=== PATIENT | male | born 1945 | race Caucasian/White ===

== ENCOUNTER 2019-04-05 14:07 | Inpatient (IN) | payer MEDICARE ==
[2019-04-05] VITALS (15 sets, daily range): BP systolic 136–188; BP diastolic 47–87
[~2019-04-05] VITALS: Ht 175.3 cm; Wt 69.6 kg
[~2019-04-05 14:07] MED LIST: CLONAZEPAM1 MG PO; METF500T16 PO; SERT50TA8 PO
--- NOTE | 2019-04-05 14:27 | PHYS DOC ---
Past Medical History Past Medical History: Diabetes-Type II Additional Past Medical Histor: MR haily Past Surgical History: No Surgical History Alcohol Use: None Drug Use: None Adult General Chief Complaint Chief Complaint: ABNORMAL LABS HPI HPI 73-year-old male with underlying history of diabetes depression presents to the emergency department with complaints of abnormal labs. Patient apparently went for his normal hemoglobin A1c check, was called today for abnormal labs of a hemoglobin 3. Patient was brought to the ER for further evaluation. Patient is asymptomatic. No nausea, vomiting, abdominal pain, chest pain, shortness of breath. Review of Systems Review of Systems Constitutional: Denies fever or chills [] Respiratory: Denies cough or shortness of breath [] Cardiovascular: No additional information not addressed in HPI [] GI: Denies abdominal pain, nausea, vomiting, bloody stools or diarrhea [] Musculoskeletal: Denies back pain or joint pain [] Integument: Denies rash or skin lesions [] Neurologic: Denies headache, focal weakness or sensory changes [] All other systems were reviewed and found to be within normal limits, except as documented in this note. Allergies Allergies Allergies Coded Allergies Type Severity Reaction Last Updated Verified No Known Drug Allergies 02/26/15 No Physical Exam Physical Exam Constitutional: Well developed, well nourished, no acute distress, non-toxic appearance. [] HENT: Normocephalic, atraumatic, bilateral external ears normal, oropharynx moist, no oral exudates, nose normal. [] Eyes: PERRLA, EOMI, conjunctiva normal, no discharge. [] Cardiovascular:Heart rate regular rhythm, no murmur [] Lungs & Thorax: Bilateral breath sounds clear to auscultation [] Abdomen: Bowel sounds normal, soft, no tenderness, no masses, no pulsatile masses. [] Skin: Warm, dry, no erythema, no rash. [] Back: No tenderness, no CVA tenderness. [] Extremities: No tenderness, no edema. [] Neurologic: Alert and oriented X 3, no focal deficits noted. [] Psychologic: Affect normal, judgement normal, mood normal. [] Current Patient Data Vital Signs Vital Signs Date Time Temp Pulse Resp B/P (MAP) Pulse Ox O2 Delivery O2 Flow Rate FiO2 04/05/19 14:13 98.3 88 25 167/73 (104) 100 Room Air 98.3 Lab Values Laboratory Tests Test 04/05/19 14:40 04/05/19 14:45 Stool Occult Blood Positive (NEG) White Blood Count 6.7 x10^3/uL (4.0-11.0) Red Blood Count 2.75 x10^6/uL (4.30-5.70) L Hemoglobin 3.5 g/dL (13.0-17.5) *L Hematocrit 14.1 % (39.0-53.0) *L Mean Corpuscular Volume 51 fL (79-100) L Mean Corpuscular Hemoglobin 13 pg (25-35) L Mean Corpuscular Hemoglobin Concent 25 g/dL (31-37) L Red Cell Distribution Width 22.4 % (11.5-14.5) H Platelet Count 273 x10^3/uL (140-400) Neutrophils (%) (Auto) % (31-73) Lymphocytes (%) (Auto) % (24-48) Monocytes (%) (Auto) % (0-9) Eosinophils (%) (Auto) % (0-3) Basophils (%) (Auto) % (0-3) Neutrophils # (Auto) x10^3/uL (1.8-7.7) Lymphocytes # (Auto) x10^3/uL (1.0-4.8) Monocytes # (Auto) x10^3/uL (0.0-1.1) Eosinophils # (Auto) x10^3/uL (0.0-0.7) Basophils # (Auto) x10^3/uL (0.0-0.2) Platelet Estimate Pending Laboratory Tests 04/05/19 14:45 EKG EKG EKG reviewed, heart rate 85, left axis deviation, normal sinus rhythm, no evidence of acute ST elevation [place].[] Interpretation Time: Interpretation time 1418 Radiology/Procedures Radiology/Procedures [] Course & Med Decision Making Course & Med Decision Making Pertinent Labs and Imaging studies reviewed. (See chart for details) []73-year-old male with underlying history of diabetes depression presents to the emergency department with complaints of abnormal labs. Patient apparently went for his normal hemoglobin A1c check, was called today for abnormal labs of a hemoglobin 3. Patient was brought to the ER for further evaluation. Patient is asymptomatic. No nausea, vomiting, abdominal pain, chest pain, shortness of breath. Patient presents with complaints of abnormal lab hgb here 3.8, + hemoccult on exam Hemodynamically stable on exam Discussed with caregiver will plan for admit and further GI consultation Jose Alejandro/Fadi in the ER for 2 units of pRBCs Fannie Disclaimer Dragon Disclaimer This electronic medical record was generated, in whole or in part, using a voice recognition dictation system. Departure Departure Impression: Primary Impression: Anemia Additional Impression: Autism Disposition: ADMITTED INPATIENT Admitting Physician: HIMRowena Condition: STABLE Referrals: PAMELA SHAW MD (PCP) Critical Care Time Critical care time was 35 minutes exclusive of procedures. Problem Qualifiers Primary Impression: Anemia Anemia type: unspecified type Qualified Codes: D64.9 - Anemia, unspecified BRADEN DEMPSEY MD Apr 05, 2019 14:27
[2019-04-05 15:10] LABS: FECAL OB PT POSITIVE (NEG)
[2019-04-05 15:41] LABS: MEAN CORPUSCULAR HEMOGLOBIN 13 pg (25-35); MEAN CORPUSCULAR HGB CONC 25 g/dL (31-37); MEAN CORPUSCULAR VOLUME 51 fL (79-100); PLATELET COUNT 273 x10^3/uL (140-400); RED BLOOD COUNT 2.75 x10^6/uL (4.30-5.70); RED CELL DISTRIBUTION WIDTH 22.4 % (11.5-14.5); WHITE BLOOD COUNT 6.7 x10^3/uL (4.0-11.0)
[2019-04-05 15:44] LABS: HEMATOCRIT 14.1 % (39.0-53.0); HEMOGLOBIN 3.5 g/dL (13.0-17.5)
[2019-04-05] MEDS ORDERED: ONDANSETRON PF 4 MG/2 ML VIAL. IV PRN (16:15)
--- NOTE | 2019-04-05 16:15 | PDOC2 ---
GI CONSULT Reason For Consult: Anemia, fecal occult positive HPI: HPI: 73 y/o male w/ MR - no meaningful history from him. Called by ER physician - no family in ER room when I saw him but apparently brought in by niece who reported abnormal labs (Hgb 3) from PCP yesterday. Here, Hgb 3.5, MCV 51, Hemoccult positive. No obvious bleeding reported. Plans for transfusion. For comparison, in 2014 Hgb was 13 w/ MCV 90. No ASA or NSAIDs on med list. PMH: PMH: per chart - autism, MR, DM, hearing loss, large cystic mass right hemisphere, c ystic mass right hemisphere FH: Family History: Other (unable to obtain) ROS: Denies pain. Otherwise difficult to obtain. Vitals: Vitals: Vital Signs Date Time Temp Pulse Resp B/P (MAP) Pulse Ox O2 Delivery O2 Flow Rate FiO2 04/05/19 14:13 98.3 88 25 167/73 (104) 100 Room Air 98.3 Labs: Labs: Laboratory Tests Test 04/05/19 14:40 04/05/19 14:45 Stool Occult Blood Positive (NEG) White Blood Count 6.7 x10^3/uL (4.0-11.0) Red Blood Count 2.75 x10^6/uL (4.30-5.70) Hemoglobin 3.5 g/dL (13.0-17.5) Hematocrit 14.1 % (39.0-53.0) Mean Corpuscular Volume 51 fL (79-100) Mean Corpuscular Hemoglobin 13 pg (25-35) Mean Corpuscular Hemoglobin Concent 25 g/dL (31-37) Red Cell Distribution Width 22.4 % (11.5-14.5) Platelet Count 273 x10^3/uL (140-400) Neutrophils (%) (Auto) % (31-73) Lymphocytes (%) (Auto) % (24-48) Monocytes (%) (Auto) % (0-9) Eosinophils (%) (Auto) % (0-3) Basophils (%) (Auto) % (0-3) Neutrophils # (Auto) x10^3/uL (1.8-7.7) Lymphocytes # (Auto) x10^3/uL (1.0-4.8) Monocytes # (Auto) x10^3/uL (0.0-1.1) Eosinophils # (Auto) x10^3/uL (0.0-0.7) Basophils # (Auto) x10^3/uL (0.0-0.2) Allergies: Coded Allergies: No Known Drug Allergies (Unverified , 02/26/15) PE: GEN: NAD HEENT: Atraumatic, PERRL LUNGS: CTAB HEART: RRR ABD: NABS, S/ND/NT EXTREMITY: No edema SKIN: Npale NEURO/PSYCH: awake and alert - says somebody has 7 girlfriends and his birthday is in [birth year] A/P: A/P: Microcytic anemia, Hemoccult positive MR -- Agree w/ transfusion. Await CMP. Empiric PPI. Discuss EGD w/ family/DPOA if they return - could do Monday. SANTINO MENA Apr 05, 2019 16:15
[2019-04-05 16:22] LABS: % LYMPHS 19 % (24-48); % MONOS 13 % (0-10); % MYELOS 1 % (0-0); % SEGS 67 % (35-66); ANISOCYTOSIS MOD; HYPOCHROMIA MARKED; MICROCYTOSIS MARKED; OVALOCYTES FEW; PLT ESTIMATE ADEQUATE (ADEQUATE); POIKILOCYTOSIS SLIGHT; SCHISTOCYTES FEW
[2019-04-05 16:30] LABS: CALCIUM 7.9 mg/dL (8.5-10.1); GFR 73.5; POTASSIUM 3.9 mmol/L (3.5-5.1)
[2019-04-05 16:36] LABS: ALBUMIN 3.4 g/dL (3.4-5.0); TOTAL BILIRUBIN 0.4 mg/dL (0.2-1.0); TOTAL PROTEIN 6.8 g/dL (6.4-8.2)
[2019-04-05] MEDS ORDERED: ACETAMINOPHEN 500 MG TABLET PO PRN (16:45)
[2019-04-05] MEDS ORDERED: TEMAZEPAM 7.5 MG CAPSULE PO PRN (16:45)
[2019-04-05] MEDS ORDERED: ACETAMINOPHEN/CODEINE 300/30MG TABLET. PO PRN (16:45)
[2019-04-05] MEDS ORDERED: ONDANSETRON PF 4 MG/2 ML VIAL. IVP PRN (16:45)
--- NOTE | 2019-04-05 16:51 | PDOC1 ---
History and Physical Date of Admission Date of Admission DATE: 04/05/19 TIME: 16:44 Identification/Chief Complaint Chief Complaint Hgb 3 at PCP office Source Source: Caregiver, Chart review, Patient History of Present Illness History of Present Illness 73 white male who looks very pale but not in distress, sent in by PCP kristin of hgb 3, NO meaningful hx can be gathered from patient, no family or niece at bedside but apparently was brought by niece today bec PCP called her for hgb 3, Pt cant tell me anything, looks comfortable, HR 80, sinus, BP 150 systolic and FOBT pOSITIVE. MICROCYTIC INDICES (MCV 51) He only takes 3 meds at home based on records, klonipin, sertraline and metformin which all can be safely continued Past Medical History Psych: Depression Endocrine: Diabetes Past Surgical History Past Surgical History: No pertinent history Family History Family History: Family History Unknown Social History Smoke: No ALCOHOL: none Drugs: None Current Problem List Problem List Problems Medical Problems: (1) Abnormal laboratory test Status: Acute (2) Anemia Status: Acute (3) Autism Status: Acute Current Medications Current Medications Current Medications Ondansetron HCl (Zofran) 4 mg PRN Q8HRS PRN IV NAUSEA/VOMITING; Start 04/05/19 at 16:15; Stop 04/06/19 at 16:14 Pantoprazole Sodium (PROTONIX VIAL for IV PUSH) 40 mg DAILY IVP ; Start 04/05/19 at 16:30 Polyethylene Glycol (miraLAX Powder BULK BOTTLE) 238 gm 1X ONCE PO ; Start 04/07/19 at 12:00; Stop 04/07/19 at 12:01 Magnesium Citrate (Citroma) 296 ml 1X ONCE PO ; Start 04/07/19 at 10:00; Stop 04/07/19 at 10:01 Bisacodyl (Dulcolax Tab) 10 mg 1X ONCE PO ; Start 04/07/19 at 10:00; Stop 04/07/19 at 10:01 Bisacodyl (Dulcolax Tab) 10 mg 1X ONCE PO ; Start 04/07/19 at 15:00; Stop 04/07/19 at 15:01 Active Scripts Active Reported Metformin Hcl 500 Mg Tablet 250 Mg PO BID Sertraline Hcl 50 Mg Tablet 50 Mg PO DAILY Clonazepam 1 Mg Tablet 1 Mg PO BID PRN Allergies Allergies: Coded Allergies: No Known Drug Allergies (Unverified , 02/26/15) ROS Review of System limited, dementia, not reliable Physical Exam General: No acute distress HEENT: Atraumatic, PERRLA, EOMI, Other (pale palpebral conjunctivae) Lungs: Clear to auscultation, Normal air movement Heart: S1S2, RRR, no thrills, no rubs, no gallops, no murmurs Abdomen: Normal bowel sounds, Soft, No tenderness, No hepatosplenomegaly, No masses Male Genitals Exam: normal genitalia, normal prostate Rectal Exam: not examined PELVIC: Nml ext genitalia Extremities: No clubbing, No cyanosis, No edema, Normal pulses, No tend erness/swelling, Other (pallor) Skin: No rashes, No breakdown, No significant lesion Neuro: Normal gait, Normal speech, Strength at 5/5 X4 ext, Normal tone, Sensation intact, Cranial nerves 3-12 NL, Reflexes 2+ Psych/Mental Status: Mental status NL, Mood NL Vitals Vitals Vital Signs Date Time Temp Pulse Resp B/P (MAP) Pulse Ox O2 Delivery O2 Flow Rate FiO2 04/05/19 15:54 89 20 151/65 (93) 100 Room Air 04/05/19 14:13 98.3 98.3 Labs Labs Laboratory Tests Test 04/05/19 14:40 04/05/19 14:45 Stool Occult Blood Positive (NEG) White Blood Count 6.7 x10^3/uL (4.0-11.0) Red Blood Count 2.75 x10^6/uL (4.30-5.70) Hemoglobin 3.5 g/dL (13.0-17.5) Hematocrit 14.1 % (39.0-53.0) Mean Corpuscular Volume 51 fL (79-100) Mean Corpuscular Hemoglobin 13 pg (25-35) Mean Corpuscular Hemoglobin Concent 25 g/dL (31-37) Red Cell Distribution Width 22.4 % (11.5-14.5) Platelet Count 273 x10^3/uL (140-400) Neutrophils (%) (Auto) % (31-73) Lymphocytes (%) (Auto) % (24-48) Monocytes (%) (Auto) % (0-9) Eosinophils (%) (Auto) % (0-3) Basophils (%) (Auto) % (0-3) Neutrophils # (Auto) x10^3/uL (1.8-7.7) Lymphocytes # (Auto) x10^3/uL (1.0-4.8) Monocytes # (Auto) x10^3/uL (0.0-1.1) Eosinophils # (Auto) x10^3/uL (0.0-0.7) Basophils # (Auto) x10^3/uL (0.0-0.2) Segmented Neutrophils % 67 % (35-66) Lymphocytes % 19 % (24-48) Monocytes % 13 % (0-10) Myelocytes % 1 % (0-0) Platelet Estimate Adequate (ADEQUATE) Hypochromasia Marked Poikilocytosis Slight Anisocytosis Mod Microcytosis Marked Ovalocytes Few Schistocytes Few Sodium Level 138 mmol/L (136-145) Potassium Level 3.9 mmol/L (3.5-5.1) Chloride Level 103 mmol/L (98-107) Carbon Dioxide Level 22 mmol/L (21-32) Anion Gap 13 (6-14) Blood Urea Nitrogen 16 mg/dL (8-26) Creatinine 1.0 mg/dL (0.7-1.3) Estimated GFR (Cockcroft-Gault) 73.5 BUN/Creatinine Ratio 16 (6-20) Glucose Level 299 mg/dL (70-99) Calcium Level 7.9 mg/dL (8.5-10.1) Iron Level 8 ug/dL (65-175) Total Iron Binding Capacity 308 ug/dL (250-450) Iron Saturation 3 % (15-34) Total Bilirubin 0.4 mg/dL (0.2-1.0) Aspartate Amino Transf (AST/SGOT) 17 U/L (15-37) Alanine Aminotransferase (ALT/SGPT) 10 U/L (16-63) Alkaline Phosphatase 85 U/L (46-116) Total Protein 6.8 g/dL (6.4-8.2) Albumin 3.4 g/dL (3.4-5.0) Albumin/Globulin Ratio 1.0 (1.0-1.7) Laboratory Tests Test 04/05/19 14:40 04/05/19 14:45 Stool Occult Blood Positive (NEG) White Blood Count 6.7 x10^3/uL (4.0-11.0) Red Blood Count 2.75 x10^6/uL (4.30-5.70) Hemoglobin 3.5 g/dL (13.0-17.5) Hematocrit 14.1 % (39.0-53.0) Mean Corpuscular Volume 51 fL (79-100) Mean Corpuscular Hemoglobin 13 pg (25-35) Mean Corpuscular Hemoglobin Concent 25 g/dL (31-37) Red Cell Distribution Width 22.4 % (11.5-14.5) Platelet Count 273 x10^3/uL (140-400) Neutrophils (%) (Auto) % (31-73) Lymphocytes (%) (Auto) % (24-48) Monocytes (%) (Auto) % (0-9) Eosinophils (%) (Auto) % (0-3) Basophils (%) (Auto) % (0-3) Neutrophils # (Auto) x10^3/uL (1.8-7.7) Lymphocytes # (Auto) x10^3/uL (1.0-4.8) Monocytes # (Auto) x10^3/uL (0.0-1.1) Eosinophils # (Auto) x10^3/uL (0.0-0.7) Basophils # (Auto) x10^3/uL (0.0-0.2) Segmented Neutrophils % 67 % (35-66) Lymphocytes % 19 % (24-48) Monocytes % 13 % (0-10) Myelocytes % 1 % (0-0) Platelet Estimate Adequate (ADEQUATE) Hypochromasia Marked Poikilocytosis Slight Anisocytosis Mod Microcytosis Marked Ovalocytes Few Schistocytes Few Sodium Level 138 mmol/L (136-145) Potassium Level 3.9 mmol/L (3.5-5.1) Chloride Level 103 mmol/L (98-107) Carbon Dioxide Level 22 mmol/L (21-32) Anion Gap 13 (6-14) Blood Urea Nitrogen 16 mg/dL (8-26) Creatinine 1.0 mg/dL (0.7-1.3) Estimated GFR (Cockcroft-Gault) 73.5 BUN/Creatinine Ratio 16 (6-20) Glucose Level 299 mg/dL (70-99) Calcium Level 7.9 mg/dL (8.5-10.1) Iron Level 8 ug/dL (65-175) Total Iron Binding Capacity 308 ug/dL (250-450) Iron Saturation 3 % (15-34) Total Bilirubin 0.4 mg/dL (0.2-1.0) Aspartate Amino Transf (AST/SGOT) 17 U/L (15-37) Alanine Aminotransferase (ALT/SGPT) 10 U/L (16-63) Alkaline Phosphatase 85 U/L (46-116) Total Protein 6.8 g/dL (6.4-8.2) Albumin 3.4 g/dL (3.4-5.0) Albumin/Globulin Ratio 1.0 (1.0-1.7) VTE Prophylaxis Ordered VTE Prophylaxis Devices: Contraindicated VTE Pharmacological Prophylaxi: Contraindicated Assessment/Plan Assessment/Plan SIGNIF MICROCYTIC ANEMIA, remarkable asymmptomatic Acute precipitous drop hgb - hgb 3 FOBT positive Depression NOS on meds DM on OHA - creat ok, so ok to cont metformin NOrmal BMI FULL CODE PLAN; Transfuse, ICU bed tmr GI consult Lqiud diet PPI IV per GI Ok to cont 3 home meds ANy active bleeding tonight will warrant bleeding scan to get etiology of anemia seen at ER Dw GI PROMISE Bose MD Apr 05, 2019 16:51
[2019-04-05] MEDS ORDERED: DEXTROSE 50% 25 GM / 50ML DISP.SYRIN. IV PRN (17:00)
[2019-04-05] MEDS: INSULIN LISPRO 300 UNITS/3 ML VIAL. SQ SCH (17:00)
[2019-04-05] MEDS ORDERED: clonazePAM 0.5 MG TABLET PO PRN (17:00)
[2019-04-05] MEDS ORDERED: metFORMIN 500 MG TABLET PO SCH (17:00)
[2019-04-05] MEDS: PANTOPRAZOLE IV PUSH 40 MG VIAL. IVP SCH (21:04)
[2019-04-05] MEDS: IV NORMAL SALINE 1000ML BAG 1,000 ML IV SCH (21:04)
[2019-04-05] MEDS ORDERED: RISP2TAB3 PO (22:27)
[2019-04-05] MEDS ORDERED: GLIM1TAB3 PO (22:27)
[2019-04-05] MEDS ORDERED: TRAZ-118 PO (22:27)
[2019-04-05 22:33] LABS: HEMATOCRIT 21.9 % (39.0-53.0)
[2019-04-05 22:35] LABS: HEMOGLOBIN 5.9 g/dL (13.0-17.5)
[2019-04-06] VITALS (22 sets, daily range): BP systolic 105–165; BP diastolic 38–83
[2019-04-06] MEDS: IV NORMAL SALINE 1000ML BAG 1,000 ML IV SCH ×3 (03:00→20:14)
[2019-04-06 07:07] LABS: ALBUMIN 3.4 g/dL (3.4-5.0); CALCIUM 8.3 mg/dL (8.5-10.1); CREATININE 0.7 mg/dL (0.7-1.3); GFR 110.9; POTASSIUM 3.7 mmol/L (3.5-5.1); TOTAL BILIRUBIN 1.5 mg/dL (0.2-1.0); TOTAL PROTEIN 6.8 g/dL (6.4-8.2)
[2019-04-06 07:11] LABS: BASO % 1 % (0-3); EOS # 0.1 x10^3/uL (0.0-0.7); EOS % 2 % (0-3); HEMATOCRIT 24.4 % (39.0-53.0); HEMOGLOBIN 7.2 g/dL (13.0-17.5); LYMPH # 2.6 x10^3/uL (1.0-4.8); LYMPH % 37 % (24-48); MEAN CORPUSCULAR HEMOGLOBIN 18 pg (25-35); MEAN CORPUSCULAR HGB CONC 29 g/dL (31-37); MEAN CORPUSCULAR VOLUME 62 fL (79-100); MONO # 0.5 x10^3/uL (0.0-1.1); MONO % 7 % (0-9); NEUT # 3.8 x10^3/uL (1.8-7.7); NEUT % 53 % (31-73); PLATELET COUNT 232 x10^3/uL (140-400); RED BLOOD COUNT 3.93 x10^6/uL (4.30-5.70); RED CELL DISTRIBUTION WIDTH 34.5 % (11.5-14.5)
[2019-04-06] MEDS: INSULIN LISPRO 300 UNITS/3 ML VIAL. SQ SCH ×3 (08:00→17:00)
--- NOTE | 2019-04-06 08:59 | PDOC ---
PROGRESS NOTES History of Present Illness History of Present Illness VTE Prophylaxis Ordered VTE Prophylaxis Devices: Contraindicated VTE Pharmacological Prophylaxi: Contraindicated Assessment/Plan Assessment/Plan MICROCYTIC ANEMIA, MARKED Acute precipitous drop hgb - hgb 3 NOW 7.2 FOBT positive autism prev CT HEAD large cystic structure associated with the posterior aspect of the right lateral ventricle extending into the temporal horn. // chronic appearance. There is some associated mass effect phoebe cystic structure, as opposed to an encephalomalacic area, is felt most likely. (A thin rim of cortex is suggested surrounding this cystic mass). Depression NOS on meds DM on OHA - NOrmal BMI FULL CODE PLAN; Transfuse, ICU bed HH in am GI FOLLOWING Lqiud diet PPI IV per GI colonoscopy and EGD ///Monday; 37 MIN CC TIME Vitals Vitals Vital Signs Date Time Temp Pulse Resp B/P (MAP) Pulse Ox O2 Delivery O2 Flow Rate FiO2 04/06/19 08:00 Room Air 04/06/19 08:00 66 18 165/83 (110) 100 04/06/19 04:00 98.3 98.3 Physical Exam General: Alert, Cooperative, No acute distress Heart: Regular rate Lungs: Clear Abdomen: Normal bowel sounds, Soft, No tenderness, No hepatosplenomegaly, No masses Extremities: No clubbing, No cyanosis, No edema, Normal pulses, No tenderness/s welling, Other (pallor) Skin: No rashes, No breakdown, No significant lesion Labs LABS BRAIN WO/W CONTRAST Indication: Altered mental status. The intracranial cyst. COMPARISON: TECHNIQUE: Axial diffusion weighted imaging was obtained. Additional sagittal T1, axial T1, axial FLAIR, and axial T2 weighted imaging of the brain was also performed. Postcontrast T1 weighted imaging was also performed after intravenous administration of gadolinium based contrast. FINDINGS The lateral ventricles are enlarged. The right lateral ventricle is much larger than the left. Small septations are noted in the region of the posterior aspect of the frontal horns bilaterally. There is thinning of the right parietal, occipital, and temporal cortex. This is seen to a lesser degree on the left. There is no acute intracranial hemorrhage. No acute or recent infarct. The 4th ventricle is normal in sinus. There is no evidence for a mass at the level of the cerebral aqueduct or midbrain. Basal cisterns are patent. No abnormal intracranial enhancement. Visualized globes and orbits are within normal limits. Visualized paranasal sinuses and mastoid air cells are clear. IMPRESSION There is significant dilatation of the lateral ventricles much greater on the right. This is either due to ex vacuo dilatation from a remote insult likely to the posterior right cerebral hemisphere, or this could also be due to presence of an intraventricular cyst with chronic thinning of the cortical mantle. The results is significant thinning and atrophy of the right temporal, parietal, and occipital lobes. This is seen to a lesser degree on the left. There is otherwise no acute intracranial abnormality identified. Electronically signed by: Vern Troncoso (Jul 09, 2015 17:10:20) DICTATED and SIGNED BY: VERN TRONCOSO MD DATE: 07/09/15 [id number] CC: PAMELA SHAW MD ~ Laboratory Tests Test 04/05/19 14:40 04/05/19 14:45 04/05/19 17:46 04/05/19 21:02 Stool Occult Blood Positive (NEG) White Blood Count 6.7 x10^3/uL (4.0-11.0) Red Blood Count 2.75 x10^6/uL (4.30-5.70) Hemoglobin 3.5 g/dL (13.0-17.5) Hematocrit 14.1 % (39.0-53.0) Mean Corpuscular Volume 51 fL (79-100) Mean Corpuscular Hemoglobin 13 pg (25-35) Mean Corpuscular Hemoglobin Concent 25 g/dL (31-37) Red Cell Distribution Width 22.4 % (11.5-14.5) Platelet Count 273 x10^3/uL (140-400) Neutrophils (%) (Auto) % (31-73) Lymphocytes (%) (Auto) % (24-48) Monocytes (%) (Auto) % (0-9) Eosinophils (%) (Auto) % (0-3) Basophils (%) (Auto) % (0-3) Neutrophils # (Auto) x10^3/uL (1.8-7.7) Lymphocytes # (Auto) x10^3/uL (1.0-4.8) Monocytes # (Auto) x10^3/uL (0.0-1.1) Eosinophils # (Auto) x10^3/uL (0.0-0.7) Basophils # (Auto) x10^3/uL (0.0-0.2) Segmented Neutrophils % 67 % (35-66) Lymphocytes % 19 % (24-48) Monocytes % 13 % (0-10) Myelocytes % 1 % (0-0) Platelet Estimate Adequate (ADEQUATE) Hypochromasia Marked Poikilocytosis Slight Anisocytosis Mod Microcytosis Marked Ovalocytes Few Schistocytes Few Sodium Level 138 mmol/L (136-145) Potassium Level 3.9 mmol/L (3.5-5.1) Chloride Level 103 mmol/L (98-107) Carbon Dioxide Level 22 mmol/L (21-32) Anion Gap 13 (6-14) Blood Urea Nitrogen 16 mg/dL (8-26) Creatinine 1.0 mg/dL (0.7-1.3) Estimated GFR (Cockcroft-Gault) 73.5 BUN/Creatinine Ratio 16 (6-20) Glucose Level 299 mg/dL (70-99) Calcium Level 7.9 mg/dL (8.5-10.1) Iron Level 8 ug/dL (65-175) Total Iron Binding Capacity 308 ug/dL (250-450) Iron Saturation 3 % (15-34) Total Bilirubin 0.4 mg/dL (0.2-1.0) Aspartate Amino Transf (AST/SGOT) 17 U/L (15-37) Alanine Aminotransferase (ALT/SGPT) 10 U/L (16-63) Alkaline Phosphatase 85 U/L (46-116) Total Protein 6.8 g/dL (6.4-8.2) Albumin 3.4 g/dL (3.4-5.0) Albumin/Globulin Ratio 1.0 (1.0-1.7) Glucose (Fingerstick) 162 mg/dL (70-99) 126 mg/dL (70-99) Test 04/05/19 22:20 04/06/19 05:50 Hemoglobin 5.9 g/dL (13.0-17.5) 7.2 g/dL (13.0-17.5) Hematocrit 21.9 % (39.0-53.0) 24.4 % (39.0-53.0) Mean Corpuscular Hemoglobin Concent 27 g/dL (31-37) 29 g/dL (31-37) White Blood Count 7.0 x10^3/uL (4.0-11.0) Red Blood Count 3.93 x10^6/uL (4.30-5.70) Mean Corpuscular Volume 62 fL (79-100) Mean Corpuscular Hemoglobin 18 pg (25-35) Red Cell Distribution Width 34.5 % (11.5-14.5) Platelet Count 232 x10^3/uL (140-400) Neutrophils (%) (Auto) 53 % (31-73) Lymphocytes (%) (Auto) 37 % (24-48) Monocytes (%) (Auto) 7 % (0-9) Eosinophils (%) (Auto) 2 % (0-3) Basophils (%) (Auto) 1 % (0-3) Neutrophils # (Auto) 3.8 x10^3/uL (1.8-7.7) Lymphocytes # (Auto) 2.6 x10^3/uL (1.0-4.8) Monocytes # (Auto) 0.5 x10^3/uL (0.0-1.1) Eosinophils # (Auto) 0.1 x10^3/uL (0.0-0.7) Basophils # (Auto) 0.0 x10^3/uL (0.0-0.2) Sodium Level 142 mmol/L (136-145) Potassium Level 3.7 mmol/L (3.5-5.1) Chloride Level 108 mmol/L (98-107) Carbon Dioxide Level 25 mmol/L (21-32) Anion Gap 9 (6-14) Blood Urea Nitrogen 10 mg/dL (8-26) Creatinine 0.7 mg/dL (0.7-1.3) Estimated GFR (Cockcroft-Gault) 110.9 BUN/Creatinine Ratio 14 (6-20) Glucose Level 118 mg/dL (70-99) Calcium Level 8.3 mg/dL (8.5-10.1) Total Bilirubin 1.5 mg/dL (0.2-1.0) Aspartate Amino Transf (AST/SGOT) 8 U/L (15-37) Alanine Aminotransferase (ALT/SGPT) 10 U/L (16-63) Alkaline Phosphatase 79 U/L (46-116) Total Protein 6.8 g/dL (6.4-8.2) Albumin 3.4 g/dL (3.4-5.0) Albumin/Globulin Ratio 1.0 (1.0-1.7) Assessment and Plan Assessmemt and Plan Problems Medical Problems: (1) Abnormal laboratory test Status: Acute (2) Anemia Status: Acute (3) Autism Status: Acute Comment Review of Relevant I have reviewed the following items mari (where applicable) has been applied. Labs Laboratory Tests Test 04/05/19 14:40 04/05/19 14:45 04/05/19 17:46 04/05/19 21:02 Stool Occult Blood Positive (NEG) White Blood Count 6.7 x10^3/uL (4.0-11.0) Red Blood Count 2.75 x10^6/uL (4.30-5.70) Hemoglobin 3.5 g/dL (13.0-17.5) Hematocrit 14.1 % (39.0-53.0) Mean Corpuscular Volume 51 fL (79-100) Mean Corpuscular Hemoglobin 13 pg (25-35) Mean Corpuscular Hemoglobin Concent 25 g/dL (31-37) Red Cell Distribution Width 22.4 % (11.5-14.5) Platelet Count 273 x10^3/uL (140-400) Neutrophils (%) (Auto) % (31-73) Lymphocytes (%) (Auto) % (24-48) Monocytes (%) (Auto) % (0-9) Eosinophils (%) (Auto) % (0-3) Basophils (%) (Auto) % (0-3) Neutrophils # (Auto) x10^3/uL (1.8-7.7) Lymphocytes # (Auto) x10^3/uL (1.0-4.8) Monocytes # (Auto) x10^3/uL (0.0-1.1) Eosinophils # (Auto) x10^3/uL (0.0-0.7) Basophils # (Auto) x10^3/uL (0.0-0.2) Segmented Neutrophils % 67 % (35-66) Lymphocytes % 19 % (24-48) Monocytes % 13 % (0-10) Myelocytes % 1 % (0-0) Platelet Estimate Adequate (ADEQUATE) Hypochromasia Marked Poikilocytosis Slight Anisocytosis Mod Microcytosis Marked Ovalocytes Few Schistocytes Few Sodium Level 138 mmol/L (136-145) Potassium Level 3.9 mmol/L (3.5-5.1) Chloride Level 103 mmol/L (98-107) Carbon Dioxide Level 22 mmol/L (21-32) Anion Gap 13 (6-14) Blood Urea Nitrogen 16 mg/dL (8-26) Creatinine 1.0 mg/dL (0.7-1.3) Estimated GFR (Cockcroft-Gault) 73.5 BUN/Creatinine Ratio 16 (6-20) Glucose Level 299 mg/dL (70-99) Calcium Level 7.9 mg/dL (8.5-10.1) Iron Level 8 ug/dL (65-175) Total Iron Binding Capacity 308 ug/dL (250-450) Iron Saturation 3 % (15-34) Total Bilirubin 0.4 mg/dL (0.2-1.0) Aspartate Amino Transf (AST/SGOT) 17 U/L (15-37) Alanine Aminotransferase (ALT/SGPT) 10 U/L (16-63) Alkaline Phosphatase 85 U/L (46-116) Total Protein 6.8 g/dL (6.4-8.2) Albumin 3.4 g/dL (3.4-5.0) Albumin/Globulin Ratio 1.0 (1.0-1.7) Glucose (Fingerstick) 162 mg/dL (70-99) 126 mg/dL (70-99) Test 04/05/19 22:20 04/06/19 05:50 Hemoglobin 5.9 g/dL (13.0-17.5) 7.2 g/dL (13.0-17.5) Hematocrit 21.9 % (39.0-53.0) 24.4 % (39.0-53.0) Mean Corpuscular Hemoglobin Concent 27 g/dL (31-37) 29 g/dL (31-37) White Blood Count 7.0 x10^3/uL (4.0-11.0) Red Blood Count 3.93 x10^6/uL (4.30-5.70) Mean Corpuscular Volume 62 fL (79-100) Mean Corpuscular Hemoglobin 18 pg (25-35) Red Cell Distribution Width 34.5 % (11.5-14.5) Platelet Count 232 x10^3/uL (140-400) Neutrophils (%) (Auto) 53 % (31-73) Lymphocytes (%) (Auto) 37 % (24-48) Monocytes (%) (Auto) 7 % (0-9) Eosinophils (%) (Auto) 2 % (0-3) Basophils (%) (Auto) 1 % (0-3) Neutrophils # (Auto) 3.8 x10^3/uL (1.8-7.7) Lymphocytes # (Auto) 2.6 x10^3/uL (1.0-4.8) Monocytes # (Auto) 0.5 x10^3/uL (0.0-1.1) Eosinophils # (Auto) 0.1 x10^3/uL (0.0-0.7) Basophils # (Auto) 0.0 x10^3/uL (0.0-0.2) Sodium Level 142 mmol/L (136-145) Potassium Level 3.7 mmol/L (3.5-5.1) Chloride Level 108 mmol/L (98-107) Carbon Dioxide Level 25 mmol/L (21-32) Anion Gap 9 (6-14) Blood Urea Nitrogen 10 mg/dL (8-26) Creatinine 0.7 mg/dL (0.7-1.3) Estimated GFR (Cockcroft-Gault) 110.9 BUN/Creatinine Ratio 14 (6-20) Glucose Level 118 mg/dL (70-99) Calcium Level 8.3 mg/dL (8.5-10.1) Total Bilirubin 1.5 mg/dL (0.2-1.0) Aspartate Amino Transf (AST/SGOT) 8 U/L (15-37) Alanine Aminotransferase (ALT/SGPT) 10 U/L (16-63) Alkaline Phosphatase 79 U/L (46-116) Total Protein 6.8 g/dL (6.4-8.2) Albumin 3.4 g/dL (3.4-5.0) Albumin/Globulin Ratio 1.0 (1.0-1.7) Laboratory Tests Test 04/05/19 14:40 04/05/19 14:45 04/05/19 17:46 04/05/19 21:02 Stool Occult Blood Positive (NEG) White Blood Count 6.7 x10^3/uL (4.0-11.0) Red Blood Count 2.75 x10^6/uL (4.30-5.70) Hemoglobin 3.5 g/dL (13.0-17.5) Hematocrit 14.1 % (39.0-53.0) Mean Corpuscular Volume 51 fL (79-100) Mean Corpuscular Hemoglobin 13 pg (25-35) Mean Corpuscular Hemoglobin Concent 25 g/dL (31-37) Red Cell Distribution Width 22.4 % (11.5-14.5) Platelet Count 273 x10^3/uL (140-400) Neutrophils (%) (Auto) % (31-73) Lymphocytes (%) (Auto) % (24-48) Monocytes (%) (Auto) % (0-9) Eosinophils (%) (Auto) % (0-3) Basophils (%) (Auto) % (0-3) Neutrophils # (Auto) x10^3/uL (1.8-7.7) Lymphocytes # (Auto) x10^3/uL (1.0-4.8) Monocytes # (Auto) x10^3/uL (0.0-1.1) Eosinophils # (Auto) x10^3/uL (0.0-0.7) Basophils # (Auto) x10^3/uL (0.0-0.2) Segmented Neutrophils % 67 % (35-66) Lymphocytes % 19 % (24-48) Monocytes % 13 % (0-10) Myelocytes % 1 % (0-0) Platelet Estimate Adequate (ADEQUATE) Hypochromasia Marked Poikilocytosis Slight Anisocytosis Mod Microcytosis Marked Ovalocytes Few Schistocytes Few Sodium Level 138 mmol/L (136-145) Potassium Level 3.9 mmol/L (3.5-5.1) Chloride Level 103 mmol/L (98-107) Carbon Dioxide Level 22 mmol/L (21-32) Anion Gap 13 (6-14) Blood Urea Nitrogen 16 mg/dL (8-26) Creatinine 1.0 mg/dL (0.7-1.3) Estimated GFR (Cockcroft-Gault) 73.5 BUN/Creatinine Ratio 16 (6-20) Glucose Level 299 mg/dL (70-99) Calcium Level 7.9 mg/dL (8.5-10.1) Iron Level 8 ug/dL (65-175) Total Iron Binding Capacity 308 ug/dL (250-450) Iron Saturation 3 % (15-34) Total Bilirubin 0.4 mg/dL (0.2-1.0) Aspartate Amino Transf (AST/SGOT) 17 U/L (15-37) Alanine Aminotransferase (ALT/SGPT) 10 U/L (16-63) Alkaline Phosphatase 85 U/L (46-116) Total Protein 6.8 g/dL (6.4-8.2) Albumin 3.4 g/dL (3.4-5.0) Albumin/Globulin Ratio 1.0 (1.0-1.7) Glucose (Fingerstick) 162 mg/dL (70-99) 126 mg/dL (70-99) Test 04/05/19 22:20 04/06/19 05:50 Hemoglobin 5.9 g/dL (13.0-17.5) 7.2 g/dL (13.0-17.5) Hematocrit 21.9 % (39.0-53.0) 24.4 % (39.0-53.0) Mean Corpuscular Hemoglobin Concent 27 g/dL (31-37) 29 g/dL (31-37) White Blood Count 7.0 x10^3/uL (4.0-11.0) Red Blood Count 3.93 x10^6/uL (4.30-5.70) Mean Corpuscular Volume 62 fL (79-100) Mean Corpuscular Hemoglobin 18 pg (25-35) Red Cell Distribution Width 34.5 % (11.5-14.5) Platelet Count 232 x10^3/uL (140-400) Neutrophils (%) (Auto) 53 % (31-73) Lymphocytes (%) (Auto) 37 % (24-48) Monocytes (%) (Auto) 7 % (0-9) Eosinophils (%) (Auto) 2 % (0-3) Basophils (%) (Auto) 1 % (0-3) Neutrophils # (Auto) 3.8 x10^3/uL (1.8-7.7) Lymphocytes # (Auto) 2.6 x10^3/uL (1.0-4.8) Monocytes # (Auto) 0.5 x10^3/uL (0.0-1.1) Eosinophils # (Auto) 0.1 x10^3/uL (0.0-0.7) Basophils # (Auto) 0.0 x10^3/uL (0.0-0.2) Sodium Level 142 mmol/L (136-145) Potassium Level 3.7 mmol/L (3.5-5.1) Chloride Level 108 mmol/L (98-107) Carbon Dioxide Level 25 mmol/L (21-32) Anion Gap 9 (6-14) Blood Urea Nitrogen 10 mg/dL (8-26) Creatinine 0.7 mg/dL (0.7-1.3) Estimated GFR (Cockcroft-Gault) 110.9 BUN/Creatinine Ratio 14 (6-20) Glucose Level 118 mg/dL (70-99) Calcium Level 8.3 mg/dL (8.5-10.1) Total Bilirubin 1.5 mg/dL (0.2-1.0) Aspartate Amino Transf (AST/SGOT) 8 U/L (15-37) Alanine Aminotransferase (ALT/SGPT) 10 U/L (16-63) Alkaline Phosphatase 79 U/L (46-116) Total Protein 6.8 g/dL (6.4-8.2) Albumin 3.4 g/dL (3.4-5.0) Albumin/Globulin Ratio 1.0 (1.0-1.7) Medications Current Medications Ondansetron HCl (Zofran) 4 mg PRN Q8HRS PRN IV NAUSEA/VOMITING; Start 04/05/19 at 16:15; Stop 04/06/19 at 16:14 Pantoprazole Sodium (PROTONIX VIAL for IV PUSH) 40 mg DAILY IVP Last administered on 04/05/19at 21:04; Start 04/05/19 at 16:30 Polyethylene Glycol (miraLAX Powder BULK BOTTLE) 238 gm 1X ONCE PO ; Start 04/07/19 at 12:00; Stop 04/07/19 at 12:01 Magnesium Citrate (Citroma) 296 ml 1X ONCE PO ; Start 04/07/19 at 10:00; Stop 04/07/19 at 10:01 Bisacodyl (Dulcolax Tab) 10 mg 1X ONCE PO ; Start 04/07/19 at 10:00; Stop 04/07/19 at 10:01 Bisacodyl (Dulcolax Tab) 10 mg 1X ONCE PO ; Start 04/07/19 at 15:00; Stop 04/07/19 at 15:01 Acetaminophen (Tylenol) 500 mg PRN Q6HRS PRN PO MILD PAIN / TEMP; Start 04/05/19 at 16:45 Acetaminophen/ Codeine Phosphate (Tylenol #3) 1 tab PRN Q6HRS PRN PO PAIN MODERATE TO SEVERE PAIN; Start 04/05/19 at 16:45 Temazepam (Restoril) 7.5 mg PRN QHS PRN PO INSOMNIA; Start 04/05/19 at 16:45 Ondansetron HCl (Zofran) 4 mg PRN Q6HRS PRN IVP NAUSEA/VOMITING; Start 1 at 16:45 Metformin HCl (Glucophage) 250 mg BIDWMEALS PO ; Start 04/05/19 at 17:00 Sertraline HCl (Zoloft) 50 mg DAILY PO ; Start 04/06/19 at 09:00 Clonazepam (KlonoPIN) 1 mg PRN BID PRN PO ANXIETY / AGITATION; Start 04/05/19 at 17:00 Insulin Human Lispro (HumaLOG) 0-7 UNITS TIDWMEALS SQ ; Start 04/05/19 at 17:00 Dextrose (Dextrose 50%-Water Syringe) 12.5 gm PRN Q15MIN PRN IV SEE COMMENTS; Start 04/05/19 at 17:00 Sodium Chloride 1,000 ml @ 100 mls/hr Q10H IV Last administered on 04/05/19at 21:04; Start 04/05/19 at 17:00 Active Scripts Active Reported Risperidone 2 Mg Tablet 2 Mg PO DAILY Trazodone Hcl 50 Mg Tablet 25 Mg PO PRN PRN Glimepiride 1 Mg Tablet 1 Tab PO BIDAC Metformin Hcl 500 Mg Tablet 250 Mg PO BID Sertraline Hcl 50 Mg Tablet 50 Mg PO DAILY Clonazepam 1 Mg Tablet 1 Mg PO BID PRN Vitals/I & O Vital Sign - Last 24 Hours 04/05/19 04/05/19 04/05/19 04/05/19 14:13 14:24 14:54 15:24 Temp 98.3 98.3 Pulse 88 87 82 80 Resp 25 22 20 16 B/P (MAP) 167/73 (104) 150/66 (94) 135/64 (87) 130/59 (82) Pulse Ox 100 100 100 100 O2 Delivery Room Air Room Air Room Air Room Air 04/05/19 04/05/19 04/05/19 04/05/19 15:54 16:57 17:00 17:00 Temp 98.3 98.3 Pulse 89 78 80 Resp 20 20 B/P (MAP) 151/65 (93) 144/63 (90) 151/47 (81) Pulse Ox 100 100 99 O2 Delivery Room Air Room Air Room Air 04/05/19 04/05/19 04/05/19 04/05/19 17:24 17:39 18:00 18:39 Temp 98.4 98.2 98.2 98.4 98.2 98.2 Pulse 71 66 66 67 Resp 18 18 18 20 B/P (MAP) 151/47 138/62 138/67 (90) 148/69 Pulse Ox 92 O2 Delivery Room Air 04/05/19 04/05/19 04/05/19 04/05/19 18:51 19:00 19:06 20:00 Temp 98.2 97.5 98.1 98.2 97.5 98.1 Pulse 81 74 77 68 Resp 20 26 20 28 B/P (MAP) 153/61 137/67 (90) 188/87 141/69 (93) Pulse Ox 91 96 O2 Delivery Room Air Room Air 04/05/19 04/05/19 04/05/19 04/05/19 20:00 20:06 20:42 21:00 Temp 98.1 98.2 98.1 98.2 Pulse 67 65 62 Resp 30 30 12 B/P (MAP) 177/65 141/69 138/71 (93) Pulse Ox 97 O2 Delivery Room Air Room Air 04/05/19 04/05/19 04/05/19 04/05/19 21:43 22:00 23:00 23:30 Temp 97.9 97.9 Pulse 64 68 60 Resp 20 20 20 B/P (MAP) 154/61 147/77 (100) 136/58 (84) Pulse Ox 94 96 O2 Delivery Room Air Room Air Room Air 04/06/19 04/06/19 04/06/19 04/06/19 00:00 00:26 00:41 01:00 Temp 97.7 97.7 98.3 97.7 97.7 98.3 Pulse 60 60 60 55 Resp 30 30 14 16 B/P (MAP) 135/58 (83) 135/58 134/63 122/49 (73) Pulse Ox 100 97 O2 Delivery Room Air Room Air 04/06/19 04/06/19 04/06/19 04/06/19 01:41 02:00 02:41 03:00 Temp 98.1 98.0 98.1 98.0 Pulse 62 59 54 58 Resp 26 20 16 20 B/P (MAP) 134/52 134/60 (84) 136/77 123/60 (81) Pulse Ox 100 99 O2 Delivery Room Air Room Air 04/06/19 04/06/19 04/06/19 04/06/19 03:41 03:50 04:00 05:00 Temp 98.6 98.3 98.6 98.3 Pulse 65 58 56 Resp 20 20 20 B/P (MAP) 123/60 133/59 (83) 156/50 (85) Pulse Ox 100 100 O2 Delivery Room Air Room Air Room Air 04/06/19 04/06/19 04/06/19 04/06/19 06:00 07:00 08:00 08:00 Pulse 70 54 66 Resp 28 18 18 B/P (MAP) 137/58 (84) 127/64 (85) 165/83 (110) Pulse Ox 100 100 100 O2 Delivery Room Air Room Air Room Air Room Air Intake and Output 04/05/19 04/05/19 04/06/19 15:00 23:00 07:00 Intake Total 1734 ml 1050 ml Output Total 800 ml 1100 ml Balance 934 ml -50 ml REY MEDINA MD Apr 06, 2019 08:59
[2019-04-06] MEDS: SERTRALINE 50 MG TABLET. PO SCH (09:00)
[2019-04-06] MEDS: GLIMEPIRIDE 2 MG TABLET. PO SCH ×2 (09:35→17:26)
[2019-04-06] MEDS: PANTOPRAZOLE IV PUSH 40 MG VIAL. IVP SCH (09:35)
[2019-04-06 11:41] LABS: % EOS 2 % (0-5); % LYMPHS 44 % (24-48); % MONOS 6 % (0-10); % SEGS 48 % (35-66); PLT ESTIMATE ADEQUATE (ADEQUATE)
--- NOTE | 2019-04-06 14:29 | PDOC ---
GI PROGRESS NOTES Date Date/Time DATE: 04/06/19 TIME: 14:26 Subjective Subjective Pleasant - but unable to answer questions- denies abd pain Objective Vitals Vital Signs Date Time Temp Pulse Resp B/P (MAP) Pulse Ox O2 Delivery O2 Flow Rate FiO2 04/06/19 14:00 55 12 125/43 (70) 92 Room Air 04/06/19 13:00 49 12 156/61 (92) 94 Room Air 04/06/19 12:00 Room Air 04/06/19 11:57 97.8 52 12 151/64 (93) 93 Room Air 97.8 04/06/19 11:00 62 12 135/58 (83) 94 Room Air 04/06/19 10:00 64 18 139/61 (87) 100 Room Air 04/06/19 09:00 55 18 154/71 (98) 100 Room Air 04/06/19 08:00 Room Air 04/06/19 08:00 97.6 66 18 165/83 (110) 100 Room Air 97.6 04/06/19 07:00 54 18 127/64 (85) 100 Room Air 04/06/19 06:00 70 28 137/58 (84) 100 Room Air 04/06/19 05:00 56 20 156/50 (85) 100 Room Air 04/06/19 04:00 98.3 58 20 133/59 (83) 100 Room Air 98.3 04/06/19 03:50 Room Air 04/06/19 03:41 98.6 65 20 123/60 98.6 04/06/19 03:00 58 20 123/60 (81) 99 Room Air 04/06/19 02:41 98.0 54 16 136/77 98.0 04/06/19 02:00 59 20 134/60 (84) 100 Room Air 04/06/19 01:41 98.1 62 26 134/52 98.1 04/06/19 01:00 55 16 122/49 (73) 97 Room Air 04/06/19 00:41 98.3 60 14 134/63 98.3 04/06/19 00:26 97.7 60 30 135/58 97.7 04/06/19 00:00 97.7 60 30 135/58 (83) 100 Room Air 97.7 04/05/19 23:30 Room Air 04/05/19 23:00 60 20 136/58 (84) 96 Room Air 04/05/19 22:00 68 20 147/77 (100) 94 Room Air 04/05/19 21:43 97.9 64 20 154/61 97.9 04/05/19 21:00 62 12 138/71 (93) 97 Room Air 04/05/19 20:42 98.2 65 30 141/69 98.2 04/05/19 20:06 98.1 67 30 177/65 98.1 04/05/19 20:00 Room Air 04/05/19 20:00 98.1 68 28 141/69 (93) 96 Room Air 98.1 04/05/19 19:06 97.5 77 20 188/87 97.5 04/05/19 19:00 74 26 137/67 (90) 91 Room Air 04/05/19 18:51 98.2 81 20 153/61 98.2 04/05/19 18:39 98.2 67 20 148/69 98.2 04/05/19 18:00 66 18 138/67 (90) 92 Room Air 04/05/19 17:39 98.2 66 18 138/62 98.2 04/05/19 17:24 98.4 71 18 151/47 98.4 04/05/19 17:00 98.3 80 20 151/47 (81) 99 Room Air 98.3 04/05/19 17:00 Room Air 04/05/19 16:57 78 144/63 (90) 100 04/05/19 15:54 89 20 151/65 (93) 100 Room Air 04/05/19 15:24 80 16 130/59 (82) 100 Room Air 04/05/19 14:54 82 20 135/64 (87) 100 Room Air Labs Labs Laboratory Tests Test 04/05/19 14:40 04/05/19 14:45 04/05/19 17:46 04/05/19 21:02 Stool Occult Blood Positive (NEG) White Blood Count 6.7 x10^3/uL (4.0-11.0) Red Blood Count 2.75 x10^6/uL (4.30-5.70) Hemoglobin 3.5 g/dL (13.0-17.5) Hematocrit 14.1 % (39.0-53.0) Mean Corpuscular Volume 51 fL (79-100) Mean Corpuscular Hemoglobin 13 pg (25-35) Mean Corpuscular Hemoglobin Concent 25 g/dL (31-37) Red Cell Distribution Width 22.4 % (11.5-14.5) Platelet Count 273 x10^3/uL (140-400) Neutrophils (%) (Auto) % (31-73) Lymphocytes (%) (Auto) % (24-48) Monocytes (%) (Auto) % (0-9) Eosinophils (%) (Auto) % (0-3) Basophils (%) (Auto) % (0-3) Neutrophils # (Auto) x10^3/uL (1.8-7.7) Lymphocytes # (Auto) x10^3/uL (1.0-4.8) Monocytes # (Auto) x10^3/uL (0.0-1.1) Eosinophils # (Auto) x10^3/uL (0.0-0.7) Basophils # (Auto) x10^3/uL (0.0-0.2) Segmented Neutrophils % 67 % (35-66) Lymphocytes % 19 % (24-48) Monocytes % 13 % (0-10) Myelocytes % 1 % (0-0) Platelet Estimate Adequate (ADEQUATE) Hypochromasia Marked Poikilocytosis Slight Anisocytosis Mod Microcytosis Marked Ovalocytes Few Schistocytes Few Sodium Level 138 mmol/L (136-145) Potassium Level 3.9 mmol/L (3.5-5.1) Chloride Level 103 mmol/L (98-107) Carbon Dioxide Level 22 mmol/L (21-32) Anion Gap 13 (6-14) Blood Urea Nitrogen 16 mg/dL (8-26) Creatinine 1.0 mg/dL (0.7-1.3) Estimated GFR (Cockcroft-Gault) 73.5 BUN/Creatinine Ratio 16 (6-20) Glucose Level 299 mg/dL (70-99) Calcium Level 7.9 mg/dL (8.5-10.1) Iron Level 8 ug/dL (65-175) Total Iron Binding Capacity 308 ug/dL (250-450) Iron Saturation 3 % (15-34) Total Bilirubin 0.4 mg/dL (0.2-1.0) Aspartate Amino Transf (AST/SGOT) 17 U/L (15-37) Alanine Aminotransferase (ALT/SGPT) 10 U/L (16-63) Alkaline Phosphatase 85 U/L (46-116) Total Protein 6.8 g/dL (6.4-8.2) Albumin 3.4 g/dL (3.4-5.0) Albumin/Globulin Ratio 1.0 (1.0-1.7) Glucose (Fingerstick) 162 mg/dL (70-99) 126 mg/dL (70-99) Test 04/05/19 22:20 04/06/19 05:50 04/06/19 12:21 Hemoglobin 5.9 g/dL (13.0-17.5) 7.2 g/dL (13.0-17.5) Hematocrit 21.9 % (39.0-53.0) 24.4 % (39.0-53.0) Mean Corpuscular Hemoglobin Concent 27 g/dL (31-37) 29 g/dL (31-37) White Blood Count 7.0 x10^3/uL (4.0-11.0) Red Blood Count 3.93 x10^6/uL (4.30-5.70) Mean Corpuscular Volume 62 fL (79-100) Mean Corpuscular Hemoglobin 18 pg (25-35) Red Cell Distribution Width 34.5 % (11.5-14.5) Platelet Count 232 x10^3/uL (140-400) Neutrophils (%) (Auto) 53 % (31-73) Lymphocytes (%) (Auto) 37 % (24-48) Monocytes (%) (Auto) 7 % (0-9) Eosinophils (%) (Auto) 2 % (0-3) Basophils (%) (Auto) 1 % (0-3) Neutrophils # (Auto) 3.8 x10^3/uL (1.8-7.7) Lymphocytes # (Auto) 2.6 x10^3/uL (1.0-4.8) Monocytes # (Auto) 0.5 x10^3/uL (0.0-1.1) Eosinophils # (Auto) 0.1 x10^3/uL (0.0-0.7) Basophils # (Auto) 0.0 x10^3/uL (0.0-0.2) Segmented Neutrophils % 48 % (35-66) Lymphocytes % 44 % (24-48) Monocytes % 6 % (0-10) Eosinophils % 2 % (0-5) Platelet Estimate Adequate (ADEQUATE) Sodium Level 142 mmol/L (136-145) Potassium Level 3.7 mmol/L (3.5-5.1) Chloride Level 108 mmol/L (98-107) Carbon Dioxide Level 25 mmol/L (21-32) Anion Gap 9 (6-14) Blood Urea Nitrogen 10 mg/dL (8-26) Creatinine 0.7 mg/dL (0.7-1.3) Estimated GFR (Cockcroft-Gault) 110.9 BUN/Creatinine Ratio 14 (6-20) Glucose Level 118 mg/dL (70-99) Calcium Level 8.3 mg/dL (8.5-10.1) Total Bilirubin 1.5 mg/dL (0.2-1.0) Aspartate Amino Transf (AST/SGOT) 8 U/L (15-37) Alanine Aminotransferase (ALT/SGPT) 10 U/L (16-63) Alkaline Phosphatase 79 U/L (46-116) Total Protein 6.8 g/dL (6.4-8.2) Albumin 3.4 g/dL (3.4-5.0) Albumin/Globulin Ratio 1.0 (1.0-1.7) Glucose (Fingerstick) 104 mg/dL (70-99) Physical Exam Physical Exam chest- clear Cor- RRR abd- soft non tender normal bowel sounds Assessment Assessment Chronic anemia with Heme + stool- MCV 50- no overt bleeding reported- likely occult CA, ulcer etc- although other sources for anemia (hematologic) in addition could be considered as well Plan Plan stable- Ok to transfer to floor Will plan EGD and colonoscopy for Monday- continue liquid diet and consider bowel prep tomorrow LISA STOKES MD Apr 06, 2019 14:29
[2019-04-07] VITALS (9 sets, daily range): BP systolic 112–152; BP diastolic 45–61
[2019-04-07 03:43] LABS: BASO # 0.1 x10^3/uL (0.0-0.2); BASO % 1 % (0-3); EOS # 0.2 x10^3/uL (0.0-0.7); EOS % 2 % (0-3); HEMATOCRIT 23.2 % (39.0-53.0); LYMPH # 2.7 x10^3/uL (1.0-4.8); LYMPH % 36 % (24-48); MEAN CORPUSCULAR HEMOGLOBIN 18 pg (25-35); MEAN CORPUSCULAR HGB CONC 29 g/dL (31-37); MEAN CORPUSCULAR VOLUME 62 fL (79-100); MONO # 0.5 x10^3/uL (0.0-1.1); MONO % 7 % (0-9); NEUT # 4.1 x10^3/uL (1.8-7.7); NEUT % 54 % (31-73); PLATELET COUNT 228 x10^3/uL (140-400); RED BLOOD COUNT 3.76 x10^6/uL (4.30-5.70); RED CELL DISTRIBUTION WIDTH 35.5 % (11.5-14.5); WHITE BLOOD COUNT 7.6 x10^3/uL (4.0-11.0)
[2019-04-07 03:46] LABS: HEMOGLOBIN 6.8 g/dL (13.0-17.5)
[2019-04-07 03:55] LABS: ALBUMIN 2.9 g/dL (3.4-5.0); ALBUMIN/GLOBULIN RATIO 0.9 (1.0-1.7); CALCIUM 7.7 mg/dL (8.5-10.1); CREATININE 0.8 mg/dL (0.7-1.3); POTASSIUM 3.7 mmol/L (3.5-5.1); TOTAL BILIRUBIN 0.8 mg/dL (0.2-1.0); TOTAL PROTEIN 6.1 g/dL (6.4-8.2)
[2019-04-07] MEDS: INSULIN LISPRO 300 UNITS/3 ML VIAL. SQ SCH ×3 (08:00→17:00)
[2019-04-07] MEDS ORDERED: BISACODYL 5 MG TABLET.DR. PO ONE ×2 (10:00→15:00)
[2019-04-07] MEDS ORDERED: MAGNESIUM CITRATE 296 ML SOLUTION. PO ONE (10:00)
[2019-04-07] MEDS: GLIMEPIRIDE 2 MG TABLET. PO SCH ×2 (10:24→16:33)
[2019-04-07] MEDS: SERTRALINE 50 MG TABLET. PO SCH (10:25)
--- NOTE | 2019-04-07 11:05 | PDOC ---
[facility] PROGRESS NOTE Chief Complaint Chief Complaint MICROCYTIC ANEMIA, MARKED Acute precipitous drop hgb FOBT positive autism prev CT HEAD large cystic structure associated with the posterior aspect of the right lateral ventricle extending into the temporal horn. // chronic appearance. There is some associated mass effect phoebe cystic structure, as opposed to an encephalomalacic area, is felt most likely. (A thin rim of cortex is suggested surrounding this cystic mass). Depression NOS on meds DM on OHA - Normal BMI History of Present Illness History of Present Illness 04/07/2019 Pt was seen and examined. On exam he was resting comfortably and pleasant to converse with. Niece was present on interview and reports prior to admission pt was largely asymptomatic. Reports he had gone for a routine office visit with his outpatient provider and his labs came back with a low hgb. On hospital admission she reports he was found to be FOBT + and is scheduled for EGD with colonoscopy tomorrow morning. 04/06/2019 VTE Prophylaxis Ordered VTE Prophylaxis Devices: Contraindicated VTE Pharmacological Prophylaxi: Contraindicated Assessment/Plan Assessment/Plan MICROCYTIC ANEMIA, MARKED Acute precipitous drop hgb - hgb 3 NOW 7.2 FOBT positive autism prev CT HEAD large cystic structure associated with the posterior aspect of the right lateral ventricle extending into the temporal horn. // chronic appearance. There is some associated mass effect phoebe cystic structure, as opposed to an encephalomalacic area, is felt most likely. (A thin rim of cortex is suggested surrounding this cystic mass). Depression NOS on meds DM on OHA - NOrmal BMI FULL CODE PLAN; Transfuse, ICU bed HH in am GI FOLLOWING Lqiud diet PPI IV per GI colonoscopy and EGD ///Monday; 37 MIN CC TIME Vitals/I&O Vitals/I&O: Vital Signs Date Time Temp Pulse Resp B/P (MAP) Pulse Ox O2 Delivery O2 Flow Rate FiO2 04/07/19 10:28 98.2 56 16 132/56 98.2 04/07/19 08:00 Room Air 04/07/19 07:00 95 I & O 04/06/19 04/06/19 04/07/19 15:00 23:00 07:00 Intake Total 2680 ml 450 ml 250 ml Output Total 2200 ml 1025 ml 1500 ml Balance 480 ml -575 ml -1250 ml Physical Exam General: Alert, Cooperative, No acute distress, Other (Pt has an autism dx, is hard to understand on coversation) Heart: Regular rate Lungs: Clear Abdomen: Normal bowel sounds, Soft, No tenderness, No hepatosplenomegaly, No masses Extremities: No clubbing, No cyanosis, No edema, Normal pulses, No tenderness/swelling, Other (pallor) Skin: No rashes, No breakdown, No significant lesion Labs Labs: Laboratory Tests Test 04/06/19 12:21 04/06/19 17:07 04/06/19 17:18 04/06/19 20:51 Glucose (Fingerstick) 104 mg/dL (70-99) 85 mg/dL (70-99) 94 mg/dL (70-99) 130 mg/dL (70-99) Test 04/07/19 03:30 04/07/19 08:01 White Blood Count 7.6 x10^3/uL (4.0-11.0) Red Blood Count 3.76 x10^6/uL (4.30-5.70) Hemoglobin 6.8 g/dL (13.0-17.5) Hematocrit 23.2 % (39.0-53.0) Mean Corpuscular Volume 62 fL (79-100) Mean Corpuscular Hemoglobin 18 pg (25-35) Mean Corpuscular Hemoglobin Concent 29 g/dL (31-37) Red Cell Distribution Width 35.5 % (11.5-14.5) Platelet Count 228 x10^3/uL (140-400) Neutrophils (%) (Auto) 54 % (31-73) Lymphocytes (%) (Auto) 36 % (24-48) Monocytes (%) (Auto) 7 % (0-9) Eosinophils (%) (Auto) 2 % (0-3) Basophils (%) (Auto) 1 % (0-3) Neutrophils # (Auto) 4.1 x10^3/uL (1.8-7.7) Lymphocytes # (Auto) 2.7 x10^3/uL (1.0-4.8) Monocytes # (Auto) 0.5 x10^3/uL (0.0-1.1) Eosinophils # (Auto) 0.2 x10^3/uL (0.0-0.7) Basophils # (Auto) 0.1 x10^3/uL (0.0-0.2) Sodium Level 143 mmol/L (136-145) Potassium Level 3.7 mmol/L (3.5-5.1) Chloride Level 109 mmol/L (98-107) Carbon Dioxide Level 23 mmol/L (21-32) Anion Gap 11 (6-14) Blood Urea Nitrogen 9 mg/dL (8-26) Creatinine 0.8 mg/dL (0.7-1.3) Estimated GFR (Cockcroft-Gault) 95.0 BUN/Creatinine Ratio 11 (6-20) Glucose Level 83 mg/dL (70-99) Calcium Level 7.7 mg/dL (8.5-10.1) Total Bilirubin 0.8 mg/dL (0.2-1.0) Aspartate Amino Transf (AST/SGOT) 9 U/L (15-37) Alanine Aminotransferase (ALT/SGPT) 6 U/L (16-63) Alkaline Phosphatase 74 U/L (46-116) Total Protein 6.1 g/dL (6.4-8.2) Albumin 2.9 g/dL (3.4-5.0) Albumin/Globulin Ratio 0.9 (1.0-1.7) Glucose (Fingerstick) 99 mg/dL (70-99) Review of Systems Review of Systems: No Reported CP, SOB, NVD Assessment and Plan Assessmemt and Plan Problems Medical Problems: (1) Abnormal laboratory test Status: Acute (2) Anemia Status: Acute (3) Autism Status: Acute MICROCYTIC ANEMIA, MARKED Acute precipitous drop hgb FOBT positive autism prev CT HEAD large cystic structure associated with the posterior aspect of the right lateral ventricle extending into the temporal horn. // chronic appearance. There is some associated mass effect phoebe cystic structure, as opposed to an encephalomalacic area, is felt most likely. (A thin rim of cortex is suggested surrounding this cystic mass). Depression NOS on meds DM on OHA - Normal BMI Plan: 1) Await colonoscopy and EGD results, procedure scheduled for 04/08. 2) Trend Hgb, Transfuse prn 3) Continue IV PPI, appreciate GI input 4) Full code 5) PT/OT Comment Review of Relevant I have reviewed the following items mari (where applicable) has been applied. Medications: Current Medications Medications (Trade) Dose Ordered Sig/Eriberto Route PRN Reason Start Time Stop Time Status Last Admin Dose Admin Bisacodyl (Dulcolax Tab) 10 mg 1X ONCE PO 04/07/19 10:00 04/07/19 10:01 DC 04/07/19 10:25 MEAGHAN DURHAM III DO Apr 07, 2019 11:05
[2019-04-07] MEDS ORDERED: POLYETHYLENE GLYCOL 3350 BTL 238 GM POWDER PO ONE (12:00)
[2019-04-07] MEDS: PANTOPRAZOLE IV PUSH 40 MG VIAL. IVP SCH (12:21)
[2019-04-07] MEDS: IV NORMAL SALINE 1000ML BAG 1,000 ML IV SCH ×2 (12:21→19:00)
--- NOTE | 2019-04-07 12:41 | PDOC ---
GI PROGRESS NOTES Date Date/Time DATE: 04/07/19 TIME: 12:40 Subjective Subjective appears comfortable, sitting up in bed. Family is present in the room. Objective Vitals Vital Signs Date Time Temp Pulse Resp B/P (MAP) Pulse Ox O2 Delivery O2 Flow Rate FiO2 04/07/19 11:32 98.0 57 139/57 (84) 99 Room Air 98.0 04/07/19 11:31 98.0 57 16 139/57 98.0 04/07/19 10:28 98.2 56 16 132/56 98.2 04/07/19 08:00 Room Air 04/07/19 07:00 98.2 58 16 124/59 (80) 95 Room Air 98.2 04/07/19 03:27 98.0 60 18 112/46 (68) 96 Room Air 98.0 04/06/19 23:20 98.3 62 18 105/38 (60) 98 Room Air 98.3 04/06/19 20:00 Room Air 04/06/19 19:15 97.7 58 18 138/81 (100) 99 Room Air 97.7 04/06/19 14:00 55 12 125/43 (70) 92 Room Air 04/06/19 13:00 49 12 156/61 (92) 94 Room Air Labs Labs Laboratory Tests Test 04/06/19 17:07 04/06/19 17:18 04/06/19 20:51 04/07/19 03:30 Glucose (Fingerstick) 85 mg/dL (70-99) 94 mg/dL (70-99) 130 mg/dL (70-99) White Blood Count 7.6 x10^3/uL (4.0-11.0) Red Blood Count 3.76 x10^6/uL (4.30-5.70) Hemoglobin 6.8 g/dL (13.0-17.5) Hematocrit 23.2 % (39.0-53.0) Mean Corpuscular Volume 62 fL (79-100) Mean Corpuscular Hemoglobin 18 pg (25-35) Mean Corpuscular Hemoglobin Concent 29 g/dL (31-37) Red Cell Distribution Width 35.5 % (11.5-14.5) Platelet Count 228 x10^3/uL (140-400) Neutrophils (%) (Auto) 54 % (31-73) Lymphocytes (%) (Auto) 36 % (24-48) Monocytes (%) (Auto) 7 % (0-9) Eosinophils (%) (Auto) 2 % (0-3) Basophils (%) (Auto) 1 % (0-3) Neutrophils # (Auto) 4.1 x10^3/uL (1.8-7.7) Lymphocytes # (Auto) 2.7 x10^3/uL (1.0-4.8) Monocytes # (Auto) 0.5 x10^3/uL (0.0-1.1) Eosinophils # (Auto) 0.2 x10^3/uL (0.0-0.7) Basophils # (Auto) 0.1 x10^3/uL (0.0-0.2) Sodium Level 143 mmol/L (136-145) Potassium Level 3.7 mmol/L (3.5-5.1) Chloride Level 109 mmol/L (98-107) Carbon Dioxide Level 23 mmol/L (21-32) Anion Gap 11 (6-14) Blood Urea Nitrogen 9 mg/dL (8-26) Creatinine 0.8 mg/dL (0.7-1.3) Estimated GFR (Cockcroft-Gault) 95.0 BUN/Creatinine Ratio 11 (6-20) Glucose Level 83 mg/dL (70-99) Calcium Level 7.7 mg/dL (8.5-10.1) Total Bilirubin 0.8 mg/dL (0.2-1.0) Aspartate Amino Transf (AST/SGOT) 9 U/L (15-37) Alanine Aminotransferase (ALT/SGPT) 6 U/L (16-63) Alkaline Phosphatase 74 U/L (46-116) Total Protein 6.1 g/dL (6.4-8.2) Albumin 2.9 g/dL (3.4-5.0) Albumin/Globulin Ratio 0.9 (1.0-1.7) Test 04/07/19 08:01 04/07/19 11:13 Glucose (Fingerstick) 99 mg/dL (70-99) 103 mg/dL (70-99) Physical Exam Physical Exam chest- clear Cor- RRR abd- soft non tender normal bowel sounds Assessment Assessment Chronic anemia with Heme + stool- MCV 50- no overt bleeding reported- likely occult CA, ulcer etc- although other sources for anemia (hematologic) in addition could be considered as well Plan Plan stable- Starting bowel prep this afternoon Will plan EGD and colonoscopy for Monday- continue liquid diet LISA STOKES MD Apr 07, 2019 12:41
[2019-04-07 16:20] LABS: HEMATOCRIT 28.6 % (39.0-53.0); HEMOGLOBIN 8.4 g/dL (13.0-17.5)
[2019-04-08 03:47] VITALS: BP 128/53
[2019-04-08] MEDS: IV NORMAL SALINE 1000ML BAG 1,000 ML IV SCH ×2 (05:00→15:00)
[2019-04-08 06:35] LABS: BASO % 1 % (0-3); EOS # 0.1 x10^3/uL (0.0-0.7); EOS % 1 % (0-3); HEMATOCRIT 25.7 % (39.0-53.0); HEMOGLOBIN 7.6 g/dL (13.0-17.5); LYMPH # 2.6 x10^3/uL (1.0-4.8); LYMPH % 38 % (24-48); MEAN CORPUSCULAR HEMOGLOBIN 19 pg (25-35); MEAN CORPUSCULAR HGB CONC 30 g/dL (31-37); MEAN CORPUSCULAR VOLUME 64 fL (79-100); MONO # 0.4 x10^3/uL (0.0-1.1); MONO % 7 % (0-9); NEUT # 3.7 x10^3/uL (1.8-7.7); NEUT % 54 % (31-73); PLATELET COUNT 212 x10^3/uL (140-400); RED CELL DISTRIBUTION WIDTH 36.4 % (11.5-14.5); WHITE BLOOD COUNT 6.9 x10^3/uL (4.0-11.0)
[2019-04-08 06:53] LABS: ALBUMIN 3.1 g/dL (3.4-5.0); CALCIUM 7.7 mg/dL (8.5-10.1); CREATININE 0.7 mg/dL (0.7-1.3); GFR 110.9; POTASSIUM 3.4 mmol/L (3.5-5.1); TOTAL BILIRUBIN 0.8 mg/dL (0.2-1.0); TOTAL PROTEIN 6.3 g/dL (6.4-8.2)
[2019-04-08 07:34] VITALS: BP 138/58
[2019-04-08] MEDS: INSULIN LISPRO 300 UNITS/3 ML VIAL. SQ SCH ×3 (08:00→17:00)
--- NOTE | 2019-04-08 08:21 | EKG ---
[facility] [address] [place] [address] Test Date: 2019-04-05 Test Time: 14:18:40 Pat Name: CINTIA SHIPMAN Department: Room: 2 Gender: M [employer] Fe[employer]: : 1945 Requested By: PROMISE MAYERS Order Number: [id number] Reading MD: Anjum Garcia MD Measurements Intervals [place] Rate: 85 P: -90 UT: 124 QRS: 0 QRSD: 92 T: 18 QT: 374 QTc: 451 Interpretive Statements SINUS RHYTHM NON-SPECIFIC ST/T CHANGES Electronically Signed On 04-22-2019 8:29:54 [employer]SE [employer] by Anjum Garcia MD
[2019-04-08] MEDS ORDERED: IV RINGERS,LACTATED 1000ML 1,000 ML IV ONE (10:00)
[2019-04-08] MEDS: PANTOPRAZOLE IV PUSH 40 MG VIAL. IVP SCH (10:28)
[2019-04-08] MEDS: AMINO AC 3%/ELECTROLYTE/GLYCER 1,000 ML IV SCH (10:31)
--- NOTE | 2019-04-08 10:33 | PDOC ---
[facility] PROGRESS NOTE Chief Complaint Chief Complaint MICROCYTIC ANEMIA, MARKED Acute precipitous drop hgb FOBT positive autism prev CT HEAD large cystic structure associated with the posterior aspect of the right lateral ventricle extending into the temporal horn. // chronic appearance. There is some associated mass effect phoebe cystic structure, as opposed to an encephalomalacic area, is felt most likely. (A thin rim of cortex is suggested surrounding this cystic mass). Depression NOS on meds DM on OHA - Normal BMI History of Present Illness History of Present Illness 04/08/2019 Pt was seen and examined. On exam pt was resting comfortably with no acute complaints. His niece was in the room on exam this morning and reports the patient will be going for a colonoscopy with endoscopy this afternoon. 04/07/2019 Pt was seen and examined. On exam he was resting comfortably and pleasant to converse with. Niece was present on interview and reports prior to admission pt was largely asymptomatic. Reports he had gone for a routine office visit with his outpatient provider and his labs came back with a low hgb. On hospital admission she reports he was found to be FOBT + and is scheduled for EGD with colonoscopy tomorrow morning. 04/06/2019 VTE Prophylaxis Ordered VTE Prophylaxis Devices: Contraindicated VTE Pharmacological Prophylaxi: Contraindicated Assessment/Plan Assessment/Plan MICROCYTIC ANEMIA, MARKED Acute precipitous drop hgb - hgb 3 NOW 7.2 FOBT positive autism prev CT HEAD large cystic structure associated with the posterior aspect of the right lateral ventricle extending into the temporal horn. // chronic appearance. There is some associated mass effect phoebe cystic structure, as opposed to an encephalomalacic area, is felt most likely. (A thin rim of cortex is suggested surrounding this cystic mass). Depression NOS on meds DM on OHA - NOrmal BMI FULL CODE PLAN; Transfuse, ICU bed HH in am GI FOLLOWING Lqiud diet PPI IV per GI colonoscopy and EGD ///Monday; 37 MIN CC TIME Vitals/I&O Vitals/I&O: Vital Signs Date Time Temp Pulse Resp B/P (MAP) Pulse Ox O2 Delivery O2 Flow Rate FiO2 04/08/19 07:34 98.5 78 18 138/58 (84) 100 Room Air 98.5 I & O 04/07/19 04/07/19 04/08/19 15:00 23:00 07:00 Intake Total 300 ml 590 ml 150 ml Output Total 150 ml Balance 300 ml 440 ml 150 ml Physical Exam General: Alert, Cooperative, No acute distress, Other (Pt has an autism dx, is hard to understand on coversation) Heart: Regular rate Lungs: Clear Abdomen: Normal bowel sounds, Soft, No tenderness, No hepatosplenomegaly, No masses Extremities: No clubbing, No cyanosis, No edema, Normal pulses, No tenderne ss/swelling, Other (pallor) Skin: No rashes, No breakdown, No significant lesion Labs Labs: Laboratory Tests Test 04/07/19 11:13 04/07/19 16:10 04/07/19 17:04 04/07/19 20:53 Glucose (Fingerstick) 103 mg/dL (70-99) 138 mg/dL (70-99) 113 mg/dL (70-99) Hemoglobin 8.4 g/dL (13.0-17.5) Hematocrit 28.6 % (39.0-53.0) Test 04/08/19 06:09 04/08/19 07:16 White Blood Count 6.9 x10^3/uL (4.0-11.0) Red Blood Count 4.00 x10^6/uL (4.30-5.70) Hemoglobin 7.6 g/dL (13.0-17.5) Hematocrit 25.7 % (39.0-53.0) Mean Corpuscular Volume 64 fL (79-100) Mean Corpuscular Hemoglobin 19 pg (25-35) Mean Corpuscular Hemoglobin Concent 30 g/dL (31-37) Red Cell Distribution Width 36.4 % (11.5-14.5) Platelet Count 212 x10^3/uL (140-400) Neutrophils (%) (Auto) 54 % (31-73) Lymphocytes (%) (Auto) 38 % (24-48) Monocytes (%) (Auto) 7 % (0-9) Eosinophils (%) (Auto) 1 % (0-3) Basophils (%) (Auto) 1 % (0-3) Neutrophils # (Auto) 3.7 x10^3/uL (1.8-7.7) Lymphocytes # (Auto) 2.6 x10^3/uL (1.0-4.8) Monocytes # (Auto) 0.4 x10^3/uL (0.0-1.1) Eosinophils # (Auto) 0.1 x10^3/uL (0.0-0.7) Basophils # (Auto) 0.0 x10^3/uL (0.0-0.2) Sodium Level 142 mmol/L (136-145) Potassium Level 3.4 mmol/L (3.5-5.1) Chloride Level 110 mmol/L (98-107) Carbon Dioxide Level 21 mmol/L (21-32) Anion Gap 11 (6-14) Blood Urea Nitrogen 6 mg/dL (8-26) Creatinine 0.7 mg/dL (0.7-1.3) Estimated GFR (Cockcroft-Gault) 110.9 BUN/Creatinine Ratio 9 (6-20) Glucose Level 77 mg/dL (70-99) Calcium Level 7.7 mg/dL (8.5-10.1) Total Bilirubin 0.8 mg/dL (0.2-1.0) Aspartate Amino Transf (AST/SGOT) 10 U/L (15-37) Alanine Aminotransferase (ALT/SGPT) 8 U/L (16-63) Alkaline Phosphatase 74 U/L (46-116) Total Protein 6.3 g/dL (6.4-8.2) Albumin 3.1 g/dL (3.4-5.0) Albumin/Globulin Ratio 1.0 (1.0-1.7) Glucose (Fingerstick) 77 mg/dL (70-99) Review of Systems Review of Systems: No CP. No SOB No N/V/D Assessment and Plan Assessmemt and Plan Problems Medical Problems: (1) Abnormal laboratory test Status: Acute (2) Anemia Status: Acute (3) Autism Status: Acute MICROCYTIC ANEMIA, MARKED Acute precipitous drop hgb FOBT positive autism prev CT HEAD large cystic structure associated with the posterior aspect of the right lateral ventricle extending into the temporal horn. // chronic appearance. There is some associated mass effect phoebe cystic structure, as opposed to an encephalomalacic area, is felt most likely. (A thin rim of cortex is suggested surrounding this cystic mass). Depression NOS on meds DM on OHA - Normal BMI Plan: 1) Await results from EGD and colonoscopy 2) Continue IV PPI 3) Continue GI recommendations 4) Trend Hgb, transfuse as needed [Patient has received 4 units thus far] 5) Started procalamine solution 6) cardiac monitoring 7) Full code 8) DVT prophylaxis Comment Review of Relevant I have reviewed the following items mari (where applicable) has been applied. Medications: Current Medications Medications (Trade) Dose Ordered Sig/Eriberto Route PRN Reason Start Time Stop Time Status Last Admin Dose Admin Polyethylene Glycol (miraLAX Powder BULK BOTTLE) 238 gm 1X ONCE PO 04/07/19 12:00 04/07/19 12:01 DC 04/07/19 13:36 Bisacodyl (Dulcolax Tab) 10 mg 1X ONCE PO 04/07/19 15:00 04/07/19 15:01 DC 04/07/19 16:34 MEAGHAN DURHAM III DO Apr 08, 2019 10:32
[2019-04-08 11:08] VITALS: BP 146/52
--- NOTE | 2019-04-08 13:13 | NUR ---
SS following for discharge planning. SS reviewed pt chart. Pt is from home and is currently on room air. PT recommended home at discharge. SS will continue to follow for discharge planning.
[2019-04-08] MEDS ORDERED: LIDOCAINE 2% PF 5 ML VIAL. ONE (13:32)
[2019-04-08] MEDS ORDERED: PROPOFOL 40 ML IV ONE (13:32)
--- NOTE | 2019-04-08 15:02 | PDOC4 ---
PROCEDURE Procedure EGD/Colonoscopy with biopsies Indication: QUINN Meds: per anesthesia Findings: E--Normal, GEJ at 40cm. G--10-12mm polyp, greater curve body--looks fundic/hyperplastic, biopsied. Antral biopsies to r/o H.pylori. D--normal to second portion; biopsies to r/o atrophy. GLENN: normal --Scope advanced to obstructing tumor (could not pass); estimated in ascending, but very tortuous/looping colon. Biopies taken and tattooed x 2 either wall distal to tumor. --6-8 mm polyp in estimated transverse, biopsied off. --Internal hemorrhoids on retroflex. Karla. well. IMP: Gastric polyp; suspect benign Colon polyp. Obstructing colonic tumor, biopsied and tattooed. REC: Stay on clears. CT, CE[facility] Surgical/onc opinions. Thanks. TYSHAWN ESPARZA MD Apr 08, 2019 15:02
[2019-04-08] MEDS ORDERED: IOHEXOL 240 MG/ML 50ML VIAL. IV ONE (15:30)
[2019-04-08] MEDS ORDERED: IOHEXOL 300 MG/ML 100ML VIAL. IV ONE (15:30)
[2019-04-08] MEDS: GLIMEPIRIDE 2 MG TABLET. PO SCH ×2 (16:30→16:32)
[2019-04-08] MEDS: SERTRALINE 50 MG TABLET. PO SCH (16:32)
[2019-04-08 19:12] VITALS: BP 155/53
[2019-04-08 23:41] VITALS: BP 132/50
[2019-04-09] VITALS (11 sets, daily range): BP systolic 126–140; BP diastolic 42–58
[2019-04-09] MEDS: AMINO AC 3%/ELECTROLYTE/GLYCER 1,000 ML IV SCH ×2 (00:33→12:40)
[2019-04-09] MEDS: IV NORMAL SALINE 1000ML BAG 1,000 ML IV SCH ×3 (01:00→21:00)
[2019-04-09 06:31] LABS: BASO # 0.1 x10^3/uL (0.0-0.2); BASO % 1 % (0-3); EOS # 0.1 x10^3/uL (0.0-0.7); EOS % 1 % (0-3); HEMATOCRIT 26.1 % (39.0-53.0); HEMOGLOBIN 7.7 g/dL (13.0-17.5); LYMPH # 2.1 x10^3/uL (1.0-4.8); LYMPH % 23 % (24-48); MEAN CORPUSCULAR HEMOGLOBIN 19 pg (25-35); MEAN CORPUSCULAR HGB CONC 29 g/dL (31-37); MEAN CORPUSCULAR VOLUME 65 fL (79-100); MONO # 0.7 x10^3/uL (0.0-1.1); MONO % 7 % (0-9); NEUT # 6.1 x10^3/uL (1.8-7.7); NEUT % 68 % (31-73); PLATELET COUNT 211 x10^3/uL (140-400); RED BLOOD COUNT 4.04 x10^6/uL (4.30-5.70); RED CELL DISTRIBUTION WIDTH 36.4 % (11.5-14.5)
[2019-04-09 06:54] LABS: ALBUMIN/GLOBULIN RATIO 0.9 (1.0-1.7); CALCIUM 8.2 mg/dL (8.5-10.1); CREATININE 0.7 mg/dL (0.7-1.3); GFR 110.9; POTASSIUM 3.6 mmol/L (3.5-5.1); TOTAL BILIRUBIN 0.8 mg/dL (0.2-1.0); TOTAL PROTEIN 6.4 g/dL (6.4-8.2)
[2019-04-09] MEDS: GLIMEPIRIDE 2 MG TABLET. PO SCH ×2 (07:30→16:30)
[2019-04-09] MEDS: INSULIN LISPRO 300 UNITS/3 ML VIAL. SQ SCH ×3 (08:00→17:00)
--- NOTE | 2019-04-09 08:28 | PDOC2 ---
MAURICE ROSS ELECTRONIC DATA INTERCHANGE SPECIALIST 04/09/19 0828: CONSULT Date of Consult Date of Consult DATE: 04/09/19 TIME: 08:08 Reason for Consult Reason for Consult: colon Referring Physician Referring Physician: Dr Gonsalez Identification/Chief Complaint Chief Complaint anemia Source Source: Caregiver, Chart review History of Present Illness Reason for Visit: Admitted with a Hgb 3, underwent colonoscopy, EGD Findings of obstructing colon mass noted on scope, (could not pass); estimated in ascending, but very tortuous/looping colon. Biopies taken and tattooed x 2 either wall distal to tumor. EGD findings-E--Normal, GEJ at 40cm.G--10-12mm polyp, greater curve body--looks fundic/hyperplastic, biopsied. Antral biopsies to r/o H.pylori.D--normal to second portion; biopsies to r/o atrophy. Hx of MR, autism,Large cystic mass in right hemisphere, maybe congenital. Lives with niece --she is his caregiver Past Medical History Psych: Depression Endocrine: Diabetes Past Surgical History Past Surgical History: No pertinent history Family History Family History: Family History Unknown Social History No ALCOHOL: none Drugs: None Lives: with Family Current Problem List Problem List Problems Medical Problems: (1) Abnormal laboratory test Status: Acute (2) Anemia Status: Acute (3) Autism Status: Acute Current Medications Current Medications Current Medications Ondansetron HCl (Zofran) 4 mg PRN Q8HRS PRN IV NAUSEA/VOMITING; Start 04/05/19 at 16:15; Stop 04/06/19 at 16:14; Status DC Pantoprazole Sodium (PROTONIX VIAL for IV PUSH) 40 mg DAILY IVP Last administered on 04/08/19at 10:28; Start 04/05/19 at 16:30 Polyethylene Glycol (miraLAX Powder BULK BOTTLE) 238 gm 1X ONCE PO Last administered on 04/07/19at 13:36; Start 04/07/19 at 12:00; Stop 04/07/19 at 12:01; Status DC Magnesium Citrate (Citroma) 296 ml 1X ONCE PO Last administered on 04/07/19at 12:21; Start 04/07/19 at 10:00; Stop 04/07/19 at 10:01; Status DC Bisacodyl (Dulcolax Tab) 10 mg 1X ONCE PO Last administered on 04/07/19at 10:25; Start 04/07/19 at 10:00; Stop 04/07/19 at 10:01; Status DC Bisacodyl (Dulcolax Tab) 10 mg 1X ONCE PO Last administered on 04/07/19at 16:34; Start 04/07/19 at 15:00; Stop 04/07/19 at 15:01; Status DC Acetaminophen (Tylenol) 500 mg PRN Q6HRS PRN PO MILD PAIN / TEMP; Start 04/05/19 at 16:45 Acetaminophen/ Codeine Phosphate (Tylenol #3) 1 tab PRN Q6HRS PRN PO PAIN MODERATE TO SEVERE PAIN; Start 04/05/19 at 16:45 Temazepam (Restoril) 7.5 mg PRN QHS PRN PO INSOMNIA Last administered on 04/06/19at 20:19; Start 04/05/19 at 16:45 Ondansetron HCl (Zofran) 4 mg PRN Q6HRS PRN IVP NAUSEA/VOMITING; Start 04/05/19 at 16:45 Metformin HCl (Glucophage) 250 mg BIDWMEALS PO ; Start 04/05/19 at 17:00; Stop 04/06/19 at 09:07; Status DC Sertraline HCl (Zoloft) 50 mg DAILY PO Last administered on 04/08/19at 16:32; Start 04/06/19 at 09:00 Clonazepam (KlonoPIN) 1 mg PRN BID PRN PO ANXIETY / AGITATION; Start 04/05/19 at 17:00 Insulin Human Lispro (HumaLOG) 0-7 UNITS TIDWMEALS SQ ; Start 04/05/19 at 17:00 Dextrose (Dextrose 50%-Water Syringe) 12.5 gm PRN Q15MIN PRN IV SEE COMMENTS; Start 04/05/19 at 17:00 Sodium Chloride 1,000 ml @ 100 mls/hr Q10H IV Last administered on 04/07/19at 12:21; Start 04/05/19 at 17:00 Glimepiride (Amaryl) 1 mg BIDAC PO Last administered on 04/08/19at 16:32; Start 04/06/19 at 09:30 Amino Acids/ Glycerin/ Electrolytes 1,000 ml @ 75 mls/hr [id number] IV Last ad ministered on 04/09/19at 00:33; Start 04/08/19 at 10:00 Ringer's Solution 1,000 ml @ 75 mls/hr 1X ONCE IV Last administered on 04/08/19at 14:00; Start 04/08/19 at 10:00; Stop 04/08/19 at 23:19; Status DC Propofol 40 ml @ As Directed STK-MED ONCE IV ; Start 04/08/19 at 13:32; Stop 04/08/19 at 13:32; Status DC Lidocaine HCl (Lidocaine Pf 2% Vial) 5 ml STK-MED ONCE .ROUTE ; Start 04/08/19 at 13:32; Stop 04/08/19 at 13:32; Status DC Iohexol (Omnipaque 240 Mg/ml) 50 ml 1X ONCE IV Last administered on 04/08/19at 15:30; Start 04/08/19 at 15:30; Stop 04/08/19 at 15:31; Status DC Iohexol (Omnipaque 300 Mg/ml) 75 ml 1X ONCE IV Last administered on 04/08/19at 15:30; Start 04/08/19 at 15:30; Stop 04/08/19 at 15:31; Status DC Active Scripts Active Reported Risperidone 2 Mg Tablet 2 Mg PO DAILY Trazodone Hcl 50 Mg Tablet 25 Mg PO PRN PRN Glimepiride 1 Mg Tablet 1 Tab PO BIDAC Clonazepam 1 Mg Tablet 1 Mg PO BID PRN Allergies Allergies: Coded Allergies: No Known Drug Allergies (Unverified , 04/08/19) ROS Review of System difficult to obtain from pt d/w niece who lives with patient General: No: Chills, Appetite (no loss) PSYCHOLOGICAL ROS: No: Anxiety, Depression Eyes: No Blurry vision, No Double vision HEENT: No: Heacaches, Sore Throat Hematological and Lymphatic: YES: Bleeding Problems; No: Blood Clots Respiratory: No: Cough, Shortness of breath Cardiovascular: No Chest Pain, No Palpitations Gastrointestinal: No Nausea, No Vomiting, No Abdominal Pain Genitourinary: No Dysuria, No Hematuria Musculoskeletal: No Joint Pain, No Muscle Pain Neurological: No Impaired Coord/balance, No Numbness/Tingling Skin: No Pruritus, No Rash Physical Exam General: Cooperative, No acute distress, Other (MR limits his able to assist in history ) HEENT: PERRLA, Mucous membr. moist/pink Lungs: Clear to auscultation, Normal air movement Heart: Regular rate, Normal S1, Normal S2 Abdomen: Soft, No tenderness Extremities: No clubbing, No cyanosis Skin: No breakdown, No significant lesion Neuro: Strength at 5/5 X4 ext, Normal tone Psych/Mental Status: Mental status NL, Mood NL MUSCULOSKELETAL: No deformity, No swelling Vitals VITALS Vital Signs Date Time Temp Pulse Resp B/P (MAP) Pulse Ox O2 Delivery O2 Flow Rate FiO2 04/09/19 07:00 97.8 61 18 140/58 (85) 96 Room Air 97.8 04/08/19 15:30 2 Labs Labs Laboratory Tests Test 04/07/19 11:13 04/07/19 16:10 04/07/19 17:04 04/07/19 20:53 Glucose (Fingerstick) 103 mg/dL (70-99) 138 mg/dL (70-99) 113 mg/dL (70-99) Hemoglobin 8.4 g/dL (13.0-17.5) Hematocrit 28.6 % (39.0-53.0) Test 04/08/19 06:09 04/08/19 07:16 04/08/19 10:51 04/08/19 17:02 White Blood Count 6.9 x10^3/uL (4.0-11.0) Red Blood Count 4.00 x10^6/uL (4.30-5.70) Hemoglobin 7.6 g/dL (13.0-17.5) Hematocrit 25.7 % (39.0-53.0) Mean Corpuscular Volume 64 fL (79-100) Mean Corpuscular Hemoglobin 19 pg (25-35) Mean Corpuscular Hemoglobin Concent 30 g/dL (31-37) Red Cell Distribution Width 36.4 % (11.5-14.5) Platelet Count 212 x10^3/uL (140-400) Neutrophils (%) (Auto) 54 % (31-73) Lymphocytes (%) (Auto) 38 % (24-48) Monocytes (%) (Auto) 7 % (0-9) Eosinophils (%) (Auto) 1 % (0-3) Basophils (%) (Auto) 1 % (0-3) Neutrophils # (Auto) 3.7 x10^3/uL (1.8-7.7) Lymphocytes # (Auto) 2.6 x10^3/uL (1.0-4.8) Monocytes # (Auto) 0.4 x10^3/uL (0.0-1.1) Eosinophils # (Auto) 0.1 x10^3/uL (0.0-0.7) Basophils # (Auto) 0.0 x10^3/uL (0.0-0.2) Sodium Level 142 mmol/L (136-145) Potassium Level 3.4 mmol/L (3.5-5.1) Chloride Level 110 mmol/L (98-107) Carbon Dioxide Level 21 mmol/L (21-32) Anion Gap 11 (6-14) Blood Urea Nitrogen 6 mg/dL (8-26) Creatinine 0.7 mg/dL (0.7-1.3) Estimated GFR (Cockcroft-Gault) 110.9 BUN/Creatinine Ratio 9 (6-20) Glucose Level 77 mg/dL (70-99) Calcium Level 7.7 mg/dL (8.5-10.1) Total Bilirubin 0.8 mg/dL (0.2-1.0) Aspartate Amino Transf (AST/SGOT) 10 U/L (15-37) Alanine Aminotransferase (ALT/SGPT) 8 U/L (16-63) Alkaline Phosphatase 74 U/L (46-116) Total Protein 6.3 g/dL (6.4-8.2) Albumin 3.1 g/dL (3.4-5.0) Albumin/Globulin Ratio 1.0 (1.0-1.7) Glucose (Fingerstick) 77 mg/dL (70-99) 88 mg/dL (70-99) 132 mg/dL (70-99) Test 04/08/19 20:19 04/09/19 06:00 04/09/19 07:43 Glucose (Fingerstick) 136 mg/dL (70-99) 104 mg/dL (70-99) White Blood Count 9.0 x10^3/uL (4.0-11.0) Red Blood Count 4.04 x10^6/uL (4.30-5.70) Hemoglobin 7.7 g/dL (13.0-17.5) Hematocrit 26.1 % (39.0-53.0) Mean Corpuscular Volume 65 fL (79-100) Mean Corpuscular Hemoglobin 19 pg (25-35) Mean Corpuscular Hemoglobin Concent 29 g/dL (31-37) Red Cell Distribution Width 36.4 % (11.5-14.5) Platelet Count 211 x10^3/uL (140-400) Neutrophils (%) (Auto) 68 % (31-73) Lymphocytes (%) (Auto) 23 % (24-48) Monocytes (%) (Auto) 7 % (0-9) Eosinophils (%) (Auto) 1 % (0-3) Basophils (%) (Auto) 1 % (0-3) Neutrophils # (Auto) 6.1 x10^3/uL (1.8-7.7) Lymphocytes # (Auto) 2.1 x10^3/uL (1.0-4.8) Monocytes # (Auto) 0.7 x10^3/uL (0.0-1.1) Eosinophils # (Auto) 0.1 x10^3/uL (0.0-0.7) Basophils # (Auto) 0.1 x10^3/uL (0.0-0.2) Sodium Level 142 mmol/L (136-145) Potassium Level 3.6 mmol/L (3.5-5.1) Chloride Level 109 mmol/L (98-107) Carbon Dioxide Level 23 mmol/L (21-32) Anion Gap 10 (6-14) Blood Urea Nitrogen 5 mg/dL (8-26) Creatinine 0.7 mg/dL (0.7-1.3) Estimated GFR (Cockcroft-Gault) 110.9 BUN/Creatinine Ratio 7 (6-20) Glucose Level 89 mg/dL (70-99) Calcium Level 8.2 mg/dL (8.5-10.1) Total Bilirubin 0.8 mg/dL (0.2-1.0) Aspartate Amino Transf (AST/SGOT) 9 U/L (15-37) Alanine Aminotransferase (ALT/SGPT) 10 U/L (16-63) Alkaline Phosphatase 70 U/L (46-116) Total Protein 6.4 g/dL (6.4-8.2) Albumin 3.0 g/dL (3.4-5.0) Albumin/Globulin Ratio 0.9 (1.0-1.7) Laboratory Tests Test 04/08/19 10:51 04/08/19 17:02 04/08/19 20:19 04/09/19 06:00 Glucose (Fingerstick) 88 mg/dL (70-99) 132 mg/dL (70-99) 136 mg/dL (70-99) White Blood Count 9.0 x10^3/uL (4.0-11.0) Red Blood Count 4.04 x10^6/uL (4.30-5.70) Hemoglobin 7.7 g/dL (13.0-17.5) Hematocrit 26.1 % (39.0-53.0) Mean Corpuscular Volume 65 fL (79-100) Mean Corpuscular Hemoglobin 19 pg (25-35) Mean Corpuscular Hemoglobin Concent 29 g/dL (31-37) Red Cell Distribution Width 36.4 % (11.5-14.5) Platelet Count 211 x10^3/uL (140-400) Neutrophils (%) (Auto) 68 % (31-73) Lymphocytes (%) (Auto) 23 % (24-48) Monocytes (%) (Auto) 7 % (0-9) Eosinophils (%) (Auto) 1 % (0-3) Basophils (%) (Auto) 1 % (0-3) Neutrophils # (Auto) 6.1 x10^3/uL (1.8-7.7) Lymphocytes # (Auto) 2.1 x10^3/uL (1.0-4.8) Monocytes # (Auto) 0.7 x10^3/uL (0.0-1.1) Eosinophils # (Auto) 0.1 x10^3/uL (0.0-0.7) Basophils # (Auto) 0.1 x10^3/uL (0.0-0.2) Sodium Level 142 mmol/L (136-145) Potassium Level 3.6 mmol/L (3.5-5.1) Chloride Level 109 mmol/L (98-107) Carbon Dioxide Level 23 mmol/L (21-32) Anion Gap 10 (6-14) Blood Urea Nitrogen 5 mg/dL (8-26) Creatinine 0.7 mg/dL (0.7-1.3) Estimated GFR (Cockcroft-Gault) 110.9 BUN/Creatinine Ratio 7 (6-20) Glucose Level 89 mg/dL (70-99) Calcium Level 8.2 mg/dL (8.5-10.1) Total Bilirubin 0.8 mg/dL (0.2-1.0) Aspartate Amino Transf (AST/SGOT) 9 U/L (15-37) Alanine Aminotransferase (ALT/SGPT) 10 U/L (16-63) Alkaline Phosphatase 70 U/L (46-116) Total Protein 6.4 g/dL (6.4-8.2) Albumin 3.0 g/dL (3.4-5.0) Albumin/Globulin Ratio 0.9 (1.0-1.7) Test 04/09/19 07:43 Glucose (Fingerstick) 104 mg/dL (70-99) Assessment/Plan Assessment/Plan obstructing colon mass CT pending, I have d/w sieve grader tender tentatively planned for OR this afternoon for lap right colectomy, possible open d/w niece DIEGO MOSES MD 04/09/19 1231: CONSULT Assessment/Plan Assessment/Plan Pt seen and examined by myself; history obtained with niece who lives with pt; he was behaving normally and was seen by his PCP where routine labs showed a Hb of 3; he was admitted for further workup, and a colonoscopy showed a tumor in the R colon, confirmed on CT; PMH/PSH/ROS/SH as above; exam: alert, hard of hearing, autistic, lungs clear, heart RR and R, abdomen soft, nontender, nondistended, ext neg for edema; Labs and Xrays reviewed; A/P) R colon tumor, recommend lap R colectomy, possible open; I reviewed the details and risks of surgery with the patients niece; they understand and would like to proceed. MAURICE ROSS APRN Apr 09, 2019 08:28 DIEGO MOSES MD Apr 09, 2019 12:31
[2019-04-09] MEDS ORDERED: IOHEXOL 300 MG/ML 100ML VIAL. IV ONE (08:30)
[2019-04-09] MEDS ORDERED: CONTRAST GIVEN. MC PRN (08:30)
[2019-04-09] MEDS: PANTOPRAZOLE IV PUSH 40 MG VIAL. IVP SCH (08:43)
[2019-04-09] MEDS: SERTRALINE 50 MG TABLET. PO SCH (09:00)
--- NOTE | 2019-04-09 10:05 | RAD ---
CT CHEST ABDOMEN PELVIS WO/W History: Colon mass Technique: CT of the chest, abdomen and pelvis was performed without and with contrast. Coronal and sagittal reconstructions were performed. Exposure: One or more of the following individualized dose reduction techniques were utilized for this examination: 1. Automated exposure control 2. Adjustment of the mA and/or kV according to patient size 3. Use of iterative reconstruction technique. Comparison: None Findings: Chest: Prior granulous disease. No pathologic axillary, mediastinal or hilar adenopathy. Coronary artery calcification. Tiny bilateral pleural effusions. 2 mm lingular pulmonary nodule (series 2 image #39). 2 mm right middle lobe pulmonary nodule (image #36). No consolidation. Abdomen and pelvis: The liver, spleen, adrenal glands, pancreas and gallbladder appear normal. Splenule adjacent to the left adrenal gland. Small left superior renal hypodensity. No hydronephrosis. Mild perinephric stranding, likely age-related. Irregular cecal wall thickening with intraluminal mass measures 2.7 x 2.3 cm. There is mild adjacent inflammatory changes. Several small right lower quadrant lymph nodes largest measures 4 mm (image #55). Oral contrast opacifies to the level of the distal colon. No evidence of bowel obstruction. Small pelvic free fluid. Decompressed urinary bladder. Small fat-containing right inguinal hernia. Bones: No pathologic osseous lesions. Impression: 1. Cecal mass with irregular wall thickening and adjacent inflammatory changes, concerning for malignancy. 2. Small right lower quadrant lymph nodes, indeterminate. 3. Small pelvic free fluid. 4. Small left renal hypodensity, likely complicated cyst. Ultrasound can confirm if clinically indicated. 5. Tiny pulmonary nodules. Recommend comparison with prior imaging studies. If prior imaging studies are not available recommend short-term follow-up. 6. Tiny bilateral pleural effusions. Electronically signed by: Josh Hoskins DO (04/09/2019 10:02 AM) [facility]
--- NOTE | 2019-04-09 10:14 | PDOC ---
Subjective: Subjective: Sister present - says he's having surgery later. Objective: Vital Signs: Vital Signs Date Time Temp Pulse Resp B/P (MAP) Pulse Ox O2 Delivery O2 Flow Rate FiO2 04/09/19 07:00 97.8 61 18 140/58 (85) 96 Room Air 97.8 04/08/19 15:30 2 Labs: Laboratory Tests Test 04/08/19 10:51 04/08/19 17:02 04/08/19 20:19 04/09/19 07:43 Glucose (Fingerstick) 88 mg/dL (70-99) 132 mg/dL (70-99) 136 mg/dL (70-99) 104 mg/dL (70-99) Imaging: EGD and colonoscopy 04/08 E--Normal, GEJ at 40cm. G--10-12mm polyp, greater curve body--looks fundic/hyperplastic, biopsied. Antral biopsies to r/o H.pylori. D--normal to second portion; biopsies to r/o atrophy. GLENN: normal --Scope advanced to obstructing tumor (could not pass); estimated in ascending, but very tortuous/looping colon. Biopies taken and tattooed x 2 either wall distal to tumor. --6-8 mm polyp in estimated transverse, biopsied off. --Internal hemorrhoids on retroflex. IMP: Gastric polyp; suspect benign Colon polyp. Obstructing colonic tumor, biopsied and tattooed. CT C/A/P Impression: 1. Cecal mass with irregular wall thickening and adjacent inflammatory changes, concerning for malignancy. 2. Small right lower quadrant lymph nodes, indeterminate. 3. Small pelvic free fluid. 4. Small left renal hypodensity, likely complicated cyst. Ultrasound can confirm if clinically indicated. 5. Tiny pulmonary nodules. Recommend comparison with prior imaging studies. If prior imaging studies are not available recommend short-term follow-up. 6. Tiny bilateral pleural effusions. PE: GEN: NAD, smiling LUNGS: room air HEART: RRR ABD: S/ND/NT NEURO/PSYCH: A & O 3 - sister says [place] - he waves to me A/P: Obstructing colonic tumor, QUINN -- Plans for OR this afternoon. SANTINO MENA Apr 09, 2019 10:14
--- NOTE | 2019-04-09 10:28 | PDOC ---
[employer] PROGRESS NOTE Chief Complaint Chief Complaint MICROCYTIC ANEMIA, MARKED Acute precipitous drop hgb FOBT positive autism prev CT HEAD large cystic structure associated with the posterior aspect of the right lateral ventricle extending into the temporal horn. // chronic appearance. There is some associated mass effect phoebe cystic structure, as opposed to an encephalomalacic area, is felt most likely. (A thin rim of cortex is suggested surrounding this cystic mass). Depression NOS on meds DM on OHA - Normal BMI History of Present Illness History of Present Illness 04/09/2019 Pt was seen and examined. No acute complaints was reported. Niece reports he will be having a picc line inserted momentarily followed by a contrast CT with plans to resect the mass found on colonoscopy this afternoon. 04/08/2019 Pt was seen and examined. On exam pt was resting comfortably with no acute complaints. His niece was in the room on exam this morning and reports the patient will be going for a colonoscopy with endoscopy this afternoon. 04/07/2019 Pt was seen and examined. On exam he was resting comfortably and pleasant to converse with. Niece was present on interview and reports prior to admission pt was largely asymptomatic. Reports he had gone for a routine office visit with his outpatient provider and his labs came back with a low hgb. On hospital admission she reports he was found to be FOBT + and is scheduled for EGD with colonoscopy tomorrow morning. 04/06/2019 VTE Prophylaxis Ordered VTE Prophylaxis Devices: Contraindicated VTE Pharmacological Prophylaxi: Contraindicated Assessment/Plan Assessment/Plan MICROCYTIC ANEMIA, MARKED Acute precipitous drop hgb - hgb 3 NOW 7.2 FOBT positive autism prev CT HEAD large cystic structure associated with the posterior aspect of the right lateral ventricle extending into the temporal horn. // chronic appearance. There is some associated mass effect phoebe cystic structure, as opposed to an encephalomalacic area, is felt most likely. (A thin rim of cortex is suggested surrounding this cystic mass). Depression NOS on meds DM on OHA - NOrmal BMI FULL CODE PLAN; Transfuse, ICU bed HH in am GI FOLLOWING Lqiud diet PPI IV per GI colonoscopy and EGD ///Monday; 37 MIN CC TIME Vitals/I&O Vitals/I&O: Vital Signs Date Time Temp Pulse Resp B/P (MAP) Pulse Ox O2 Delivery O2 Flow Rate FiO2 04/09/19 07:00 97.8 61 18 140/58 (85) 96 Room Air 97.8 04/08/19 15:30 2 I & O 04/08/19 04/08/19 04/09/19 15:00 23:00 07:00 Intake Total 1600 ml 200 ml Output Total 200 ml 400 ml Balance 1400 ml -200 ml Physical Exam General: Alert, Cooperative, No acute distress, Other (MR limits his able to assist in history ) Heart: Regular rate, Normal S1, Normal S2 Lungs: Clear Abdomen: Soft, No tenderness Extremities: No clubbing, No cyanosis Skin: No breakdown, No significant lesion Labs Labs: Laboratory Tests Test 04/08/19 10:51 04/08/19 17:02 04/08/19 20:19 04/09/19 06:00 Glucose (Fingerstick) 88 mg/dL (70-99) 132 mg/dL (70-99) 136 mg/dL (70-99) White Blood Count 9.0 x10^3/uL (4.0-11.0) Red Blood Count 3.99 x10^6/uL (4.30-5.70) Hemoglobin 7.7 g/dL (13.0-17.5) Hematocrit 26.1 % (39.0-53.0) Mean Corpuscular Volume 65 fL (79-100) Mean Corpuscular Hemoglobin 19 pg (25-35) Mean Corpuscular Hemoglobin Concent 29 g/dL (31-37) Red Cell Distribution Width 36.4 % (11.5-14.5) Platelet Count 211 x10^3/uL (140-400) Neutrophils (%) (Auto) 68 % (31-73) Lymphocytes (%) (Auto) 23 % (24-48) Monocytes (%) (Auto) 7 % (0-9) Eosinophils (%) (Auto) 1 % (0-3) Basophils (%) (Auto) 1 % (0-3) Neutrophils # (Auto) 6.1 x10^3/uL (1.8-7.7) Lymphocytes # (Auto) 2.1 x10^3/uL (1.0-4.8) Monocytes # (Auto) 0.7 x10^3/uL (0.0-1.1) Eosinophils # (Auto) 0.1 x10^3/uL (0.0-0.7) Basophils # (Auto) 0.1 x10^3/uL (0.0-0.2) Absolute Reticulocyte Count 0.080 x10^6/uL (0.020-0.120) Percent Reticulocyte Count 2.0 % (0.5-2.3) Immature Reticulocyte Fraction 0.51 (0.20-0.60) Sodium Level 142 mmol/L (136-145) Potassium Level 3.6 mmol/L (3.5-5.1) Chloride Level 109 mmol/L (98-107) Carbon Dioxide Level 23 mmol/L (21-32) Anion Gap 10 (6-14) Blood Urea Nitrogen 5 mg/dL (8-26) Creatinine 0.7 mg/dL (0.7-1.3) Estimated GFR (Cockcroft-Gault) 110.9 BUN/Creatinine Ratio 7 (6-20) Glucose Level 89 mg/dL (70-99) Calcium Level 8.2 mg/dL (8.5-10.1) Ferritin 7 ng/mL (26-388) Total Bilirubin 0.8 mg/dL (0.2-1.0) Aspartate Amino Transf (AST/SGOT) 9 U/L (15-37) Alanine Aminotransferase (ALT/SGPT) 10 U/L (16-63) Alkaline Phosphatase 70 U/L (46-116) Total Protein 6.4 g/dL (6.4-8.2) Albumin 3.0 g/dL (3.4-5.0) Albumin/Globulin Ratio 0.9 (1.0-1.7) Test 04/09/19 07:43 Glucose (Fingerstick) 104 mg/dL (70-99) Review of Systems Review of Systems: No CP No SOB No N/V/D Assessment and Plan Assessmemt and Plan Problems Medical Problems: (1) Abnormal laboratory test Status: Acute (2) Anemia Status: Acute (3) Autism Status: Acute MICROCYTIC ANEMIA, MARKED Acute precipitous drop hgb FOBT positive autism prev CT HEAD large cystic structure associated with the posterior aspect of the right lateral ventricle extending into the temporal horn. // chronic appearance. There is some associated mass effect phoebe cystic structure, as opposed to an encephalomalacic area, is felt most likely. (A thin rim of cortex is suggested surrounding this cystic mass). Depression NOS on meds DM on OHA - Normal BMI Obstructing mass of the ascending colon found on colonoscopy Gastric polyp found on EGD. Plan: 1) Plan to resect the mass this afternoon 2) Abdominal CT to further stage the suspected cancer prior to resection 3) Await further GI, Oncology, and Surgical recommendations 4) Trend hgbs and transfuse prn 5) DVT prophylaxis 6) PT/OT 7) Daily labs (CBC/CMP) Comment Review of Relevant I have reviewed the following items mari (where applicable) has been applied. Medications: Current Medications Medications (Trade) Dose Ordered Sig/Eriberto Route PRN Reason Start Time Stop Time Status Last Admin Dose Admin Iohexol (Omnipaque 240 Mg/ml) 50 ml 1X ONCE IV 04/08/19 15:30 04/08/19 15:31 DC 04/08/19 15:30 Iohexol (Omnipaque 300 Mg/ml) 75 ml 1X ONCE IV 04/08/19 15:30 04/08/19 15:31 DC 04/08/19 15:30 Iohexol (Omnipaque 300 Mg/ml) 75 ml 1X ONCE IV 04/09/19 08:30 04/09/19 08:31 DC 04/09/19 08:30 MEAGHAN DURHAM III DO Apr 09, 2019 10:28
[2019-04-09] MEDS ORDERED: LIDOCAINE WITH 8.4% SOD BICARB 3 ML DISP.SYRIN. ONE (12:16)
[2019-04-09] MEDS ORDERED: LIDOCAINE WITH 8.4% SOD BICARB 3 ML DISP.SYRIN. INJ ONE (12:30)
--- NOTE | 2019-04-09 13:03 | RAD ---
Procedure: Upper extremity PICC line placement Clinical Indication: Adult male requiring central venous access Sedation: Local anesthesia only was provided Antibiotics: None Fluoro Time: 0.2 minutes. Images: 1 Contrast: None Sterility: All elements of maximal sterile barrier technique including the use of a cap, mask, sterile gown, sterile gloves, large sterile sheet, appropriate hand hygiene, and 2% chlorhexidine for cutaneous antisepsis (or acceptable alternative antiseptic per current guidelines) were followed for this procedure. Consent: The procedure was explained in its entirety to the patient or the patients designated physician relations representative by a member of the treatment team, including a discussion of the risks, benefits and commonly accepted alternatives to the procedure, as well as the expected consequences of no therapy whatsoever. Discussion of the risks included, but was not limited to, those that are most frequent and those that are rare but possibly severe or life-threatening, as well as the possibility of unforeseen complications. Technique and Findings: Following informed consent, the patient was prepped and draped in the usual sterile fashion. Ultrasound interrogation of the right arm revealed patency and compressibility of the right basilic vein. A hard copy ultrasound image was recorded. 1% Lidocaine was used to achieve local anesthesia and a 21-gauge micropuncture needle was used to gain access to the targeted vein. The needle was exchanged over wire for a 5 Faro[place] peel-away sheath which was used to deploy a PICC line under fluoroscopic guidance such that the distal tip resided at the cavoatrial junction. The catheter flushed and aspirated with ease and was sutured to the skin. Complications: No immediate Impression: 1. Ultrasound guided PICC line placement as described.
[2019-04-09] MEDS ORDERED: IV RINGERS,LACTATED 1000ML 1,000 ML IV SCH (13:07)
[2019-04-09] MEDS ORDERED: PROCHLORPERAZINE 10 MG/2 ML VIAL. IV PRN (13:15)
[2019-04-09] MEDS ORDERED: HYDROmorphone 2 MG/ML VIAL IV PRN (13:15)
[2019-04-09] MEDS ORDERED: LIDOCAINE 1% PF 2 ML VIAL. ID PRN (13:15)
[2019-04-09] MEDS ORDERED: ONDANSETRON PF 4 MG/2 ML VIAL. IV PRN (13:15)
[2019-04-09] MEDS ORDERED: MORPHINE SULFATE 2 MG/ML VIAL. IV PRN (13:15)
[2019-04-09] MEDS ORDERED: fentaNYL PF VIAL 100 MCG/2 ML VIAL IV PRN (13:15)
--- NOTE | 2019-04-09 13:54 | NUR ---
SW following pt. PT/OT recommends home. SW will be available as needed.
[2019-04-09] MEDS ORDERED: MIDAZOLAM HCL/PF 2 MG/2 ML VIAL. ONE (14:32)
[2019-04-09] MEDS ORDERED: PROPOFOL 20 ML IV ONE (14:33)
[2019-04-09] MEDS ORDERED: fentaNYL PF VIAL 100 MCG/2 ML VIAL ONE ×3 (14:33→18:57)
[2019-04-09] MEDS ORDERED: LIDOCAINE 2% PF 5 ML VIAL. ONE (14:33)
[2019-04-09] MEDS ORDERED: DEXAMETHASONE SOD PHOS 4 MG/ML VIAL ONE (15:08)
[2019-04-09] MEDS ORDERED: ePHEDrine PF IN SALINE 50 MG/10 ML SYRINGE. IV ONE (15:08)
[2019-04-09] MEDS ORDERED: DESFLURANE 61 TO 120 MINUTES IH ONE (15:08)
[2019-04-09] MEDS ORDERED: GLYCOPYRROLATE 1 MG/5 ML VIAL. ONE (15:48)
[2019-04-09] MEDS ORDERED: NEOSTIGMINE METHYLSULFATE 5 MG/5 ML SYRINGE. ONE (15:48)
--- NOTE | 2019-04-09 18:27 | PDOC4 ---
Operative Note Operative Note Operative Note: Preoperative Diagnosis: Right colon tumor Postoperative Diagnosis: Same Procedure: Laparoscopic right colon resection Surgeon: Sanjeev Cmm Technician: Leona ZELAYA Anesthesia: Gen. EBL: 50 mL Specimen: Right colon to pathology Drains: Cedar drain to midline incision Complications: None Indication: The patient is a 73-year-old male who was admitted due to profound anemia. His evaluation included a colonoscopy showing a right colon tumor. We recommend a laparoscopic right colon resection for definitive treatment. The details and risks of the surgery were discussed with the patient's family. The risks include bleeding, infection, anastomotic leak, pain, visceral injury, anesthetic risk, potential need for additional surgery or procedure. They understand and would like to proceed. Description: The patient was taken to the operating room and placed supine on the operating table. Gen. anesthesia was performed. The abdomen was prepped with ChloraPrep and draped in a standard surgical manner. A small supraumbilical incision was made in the skin through which a Veress needle was inserted and a pneumoperitoneum was created. A visualized 5 mm trocar was inserted and the laparoscope was introduced. In the left lower quadrant a 5 mm trocar was inserted, and in lower midabdomen a 5 mm trocar was inserted. Initial inspection showed the tattoo located in the region of the cecum. We began with mobilization of the entire right colon. This was done laparoscopically freeing up the lateral peritoneal attachments with the Harmonic scalpel. We continued dissection proximally toward the hepatic flexure. The hepatic flexure attachments were fairly tight however we were gradually able to mobilize these. Another 5 mm port was placed in the upper midabdomen to facilitate this. The duodenum was readily identified and preserved. After some time we had the entire right colon and proximal transverse colon completely mobilized toward the midline ready for extracorporeal resection. A small incision was made around the umbilicus extending superior and inferiorly. The fascia and peritoneum were divided and the Haroon retractor was inserted. The right colon was able to be delivered extracorporeally through the extraction incision. The distal ileum was divided with a ERNESTO-75 stapling device. Similarly the proximal transverse colon was also divided with the stapler. We then proceeded with mesenteric dissection. Blood vessels were ligated with 2-0 Vicryl and divided. The LigaSure device assisted with this as well. The entire right colon was fully excised and sent to pathology. Gross evaluation confirmed the tumor present with wide margins. A side to side, functional end-to-end stapled anastomosis was then created between the distal ileum and proximal transverse colon. The common enterotomy was oversewn with 3-0 PDS. The staple lines were all reinforced with interrupted 3-0 Vicryl placed in the seromuscular layer. Upon completion the anastomosis was wi vidya patent with no undue tension. The bowel was returned back to the abdominal cavity. The retractor was removed and the midline fascia was approximated with 1 PDS. The abdominal cavity was then reinsufflated and reinspected. Hemostasis was good and no other gross abnormalities were seen. Throughout the case no other sites of tumor were noted either in the liver or peritoneal surfaces. The pneumoperitoneum was relieved and the laparoscopic ports were removed. A quarter inch Kwame drain was left in the midline incision and secured to the skin with 3-0 Vicryl. Skin at all incisions was closed with 4-0 Monocryl. Sterile dressings were then applied. The patient tolerated the procedure well and was sent to the recovery room in stable condition. At the end of the case all counts were correct. Note: Myself and the operative team was unable to place a ferguson catheter while under anesthesia. The foreskin of the patient is unable to retract and was nearly sealed. Attempts to dilate the opening and place a catheter were unsuccessful, and most likely a foreskin procedure will be required if catheterization is necessary. There is currently no Urology service at [facility]. DIEGO MOSES MD Apr 09, 2019 18:27
[2019-04-09] MEDS ORDERED: HYDROmorphone 2 MG/ML VIAL IVP PRN (18:30)
--- NOTE | 2019-04-09 18:39 | RAD ---
Exam: Abdomen one view INDICATION: Count Discrepancy since the postoperative TECHNIQUE: Frontal view of the abdomen Comparisons: None FINDINGS: No radiopaque foreign body is identified. Contrast is noted within the residual colon. No evidence for obstruction. Visual is osseous structures are unremarkable. IMPRESSION: No unexpected radiopaque foreign body. Electronically signed by: Jarrell Grady MD (04/09/2019 6:36 PM) [id number] FOR INTERNAL CODING PURPOSES Critical result: Findings discussed with operating room at 04/09/2019 6:36 PM. RESULT CODE: (C)
[2019-04-09] MEDS: fentaNYL PF VIAL 100 MCG/2 ML VIAL IV PRN ×2 (18:50→19:12)
--- NOTE | 2019-04-09 21:02 | NUR ---
pt was down in surgery Addendum: 04/09/19 at 2107 by MANNY CARVAJAL RN Amended: Links added.
[2019-04-09] MEDS: HYDROmorphone 2 MG/ML VIAL IVP PRN (21:31)
--- NOTE | 2019-04-09 23:16 | CONS ---
DATE OF CONSULTATION: 04/09/2019 MEDICAL ONCOLOGY CONSULTATION REPORT CONSULTATION REQUESTED BY: Dr. Balbina Sandoval. REASON FOR CONSULTATION: Anemia and colon cancer. HISTORY OF PRESENT ILLNESS: The patient is a 73-year-old gentleman, who has a history of mental retardation, who was brought into the Hospital Emergency Room on 04/05/2019 because of a hemoglobin of 3 that was checked by his primary care physician the day prior to admission. At the hospital, his hemoglobin was 3.5 with an MCV of 51 and Hemoccult was positive. His hemoglobin in 2015 was 13 with an MCV of 90. He underwent blood transfusion and hemoglobin improved to 8.4 on 04/07/2019. He underwent a colonoscopy by Dr. Adalberto Gonsalez on 04/08/2019 which revealed an obstructing colonic tumor in the ascending colon and biopsies were obtained. He underwent a CT scan of the chest, abdomen and pelvis on 04/08/2019 which revealed cecal mass with irregular wall thickening concerning for malignancy along with right lower quadrant lymph nodes, which are indeterminate. Tiny pulmonary nodules noted. Tiny bilateral pleural effusions are noted. Liver is unremarkable. He was evaluated by Dr. Greyson Pace and surgery was planned. I discussed with Dr. Pace. PAST MEDICAL HISTORY: 1. Mental retardation. 2. Diabetes mellitus. 3. Hearing loss. 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 FAMILY HISTORY: Negative for colon cancer. SOCIAL HISTORY: No smoking or alcohol abuse. REVIEW OF SYSTEMS: A 12-point review of system was performed. Pertinent positives are mentioned in the history of present illness. Rest of the system review is negative. PHYSICAL EXAMINATION: GENERAL APPEARANCE: The patient is a 73-year-old gentleman who is in no acute cardiorespiratory distress. VITAL SIGNS: Blood pressure 134/58, temperature 98.4. HEAD: Head atraumatic, normocephalic. EYES: No icterus. NECK: Supple. CHEST: Bilaterally symmetrical. HEART: S1, S2 normal. ABDOMEN: Soft, nontender. CENTRAL NERVOUS SYSTEM: No focal deficits. LYMPHATICS: No lymphadenopathy. SKIN: No rashes. PSYCHOLOGIC: Mood and affect are appropriate. LABORATORY DATA: From 04/05/2019, WBC 6.7, hemoglobin 3.5, MCV 51, platelet count 273. Creatinine 0.7. B12 287. Iron 8, TIBC 308, iron saturation 3%, ferritin is 7. IMPRESSION AND PLAN: 1. Mass in the cecum clinically concerning for colon cancer. I discussed it with Dr. Greyson Pace and the patient will have surgery on 04/09/2019. I discussed in detail with the patient and his niece regarding the clinical impression of colon cancer. CT scan of the chest, abdomen and pelvis on 04/08/2019 does not reveal any evidence of metastatic disease. Tiny lung nodules are noted measuring 2 mm. I discussed the role of surgery and adjuvant chemotherapy. The patient is not interested to pursue with any kind of adjuvant chemotherapy. The niece is very concerned that because of his mental retardation, he would not be able to tolerate chemotherapy and its potential toxicities. Hence, plan for surveillance. 2. Hypochromic microcytic anemia due to iron deficiency. Plan iron supplementation. 3. B12 deficiency. Plan vitamin B12 supplementation. 4. Mental retardation. He had a brain MRI on 07/09/2015 which revealed significant dilatation of the lateral ventricles, much greater on the right. 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 There is significant thinning and atrophy of the right temporal, parietal and occipital lobes. Lesser degree on the left side. I discussed with the patient's niece. I discussed with registered nurse. I discussed with Dr. Greyson Pace. TEJAS GRACE MD DR: ESVIN/nts JOB#: [id number] / [id number] MITALI
[2019-04-10] MEDS: AMINO AC 3%/ELECTROLYTE/GLYCER 1,000 ML IV SCH (02:42)
[2019-04-10 03:20] VITALS: BP 138/51
[2019-04-10] MEDS: HYDROmorphone 2 MG/ML VIAL IVP PRN (04:20)
[2019-04-10 04:41] LABS: BASO % 0 % (0-3); EOS % 0 % (0-3); HEMATOCRIT 26.1 % (39.0-53.0); HEMOGLOBIN 7.6 g/dL (13.0-17.5); LYMPH # 2.4 x10^3/uL (1.0-4.8); LYMPH % 16 % (24-48); MEAN CORPUSCULAR HEMOGLOBIN 19 pg (25-35); MEAN CORPUSCULAR HGB CONC 29 g/dL (31-37); MEAN CORPUSCULAR VOLUME 64 fL (79-100); MONO % 7 % (0-9); NEUT # 11.5 x10^3/uL (1.8-7.7); NEUT % 77 % (31-73); PLATELET COUNT 181 x10^3/uL (140-400); RED BLOOD COUNT 4.06 x10^6/uL (4.30-5.70); RED CELL DISTRIBUTION WIDTH 37.2 % (11.5-14.5)
[2019-04-10 05:02] LABS: ALBUMIN 3.1 g/dL (3.4-5.0); ALBUMIN/GLOBULIN RATIO 0.9 (1.0-1.7); CALCIUM 8.4 mg/dL (8.5-10.1); CREATININE 0.8 mg/dL (0.7-1.3); POTASSIUM 3.7 mmol/L (3.5-5.1); TOTAL BILIRUBIN 0.8 mg/dL (0.2-1.0); TOTAL PROTEIN 6.4 g/dL (6.4-8.2)
[2019-04-10 05:42] LABS: % LYMPHS 15 % (24-48); % MONOS 1 % (0-10); % SEGS 84 % (35-66)
[2019-04-10 05:44] LABS: PLT ESTIMATE ADEQUATE (ADEQUATE)
[2019-04-10 05:51] LABS: HYPOCHROMIA MARKED; POIKILOCYTOSIS SLIGHT
[2019-04-10 05:52] LABS: OVALOCYTES FEW; SCHISTOCYTES FEW
[2019-04-10 05:53] LABS: ANISOCYTOSIS MARKED
[2019-04-10 05:56] LABS: MICROCYTOSIS MOD
--- NOTE | 2019-04-10 06:01 | NUR ---
Pt was incontinent throughout night and had a couple of accidents. After trying numerous times to stand and use the urinal and /or commode with no results, this nurse bladder scanned pt and he was found to have 712ml. Called surgery on-call physician and got orders to transfer pt to [facility] for urology consult. Hospitalist and nursing packing house supervisor were made aware of the order to transfer.
[2019-04-10 07:00] VITALS: BP 136/58
--- NOTE | 2019-04-10 08:41 | PDOC ---
SURGICAL PROGRESS NOTE Subjective resting ferguson not able to be placed in OR due to anatomy has had urinary retention --d/w case management--working toward tx to [facility] for urology eval Vital Signs Vital Signs Date Time Temp Pulse Resp B/P (MAP) Pulse Ox O2 Delivery O2 Flow Rate FiO2 04/10/19 08:23 97 Room Air 04/10/19 03:20 98.6 65 18 138/51 (80) 98.6 04/09/19 18:55 8 I&O l Intake and Output 04/10/19 07:00 Intake Total 1250 ml Output Total 50 ml Balance 1200 ml Intake Oral 0 ml IV Total 1250 ml Estimated Blood Loss 50 ml # Voids 2 General: Alert, Cooperative, No acute distress Abdomen: Soft, Other (dressing dry) Labs Laboratory Tests Test 04/08/19 10:51 04/08/19 17:02 04/08/19 20:19 04/09/19 06:00 Glucose (Fingerstick) 88 mg/dL (70-99) 132 mg/dL (70-99) 136 mg/dL (70-99) White Blood Count 9.0 x10^3/uL (4.0-11.0) Red Blood Count 3.99 x10^6/uL (4.30-5.70) Hemoglobin 7.7 g/dL (13.0-17.5) Hematocrit 26.1 % (39.0-53.0) Mean Corpuscular Volume 65 fL (79-100) Mean Corpuscular Hemoglobin 19 pg (25-35) Mean Corpuscular Hemoglobin Concent 29 g/dL (31-37) Red Cell Distribution Width 36.4 % (11.5-14.5) Platelet Count 211 x10^3/uL (140-400) Neutrophils (%) (Auto) 68 % (31-73) Lymphocytes (%) (Auto) 23 % (24-48) Monocytes (%) (Auto) 7 % (0-9) Eosinophils (%) (Auto) 1 % (0-3) Basophils (%) (Auto) 1 % (0-3) Neutrophils # (Auto) 6.1 x10^3/uL (1.8-7.7) Lymphocytes # (Auto) 2.1 x10^3/uL (1.0-4.8) Monocytes # (Auto) 0.7 x10^3/uL (0.0-1.1) Eosinophils # (Auto) 0.1 x10^3/uL (0.0-0.7) Basophils # (Auto) 0.1 x10^3/uL (0.0-0.2) Absolute Reticulocyte Count 0.080 x10^6/uL (0.020-0.120) Percent Reticulocyte Count 2.0 % (0.5-2.3) Immature Reticulocyte Fraction 0.51 (0.20-0.60) Sodium Level 142 mmol/L (136-145) Potassium Level 3.6 mmol/L (3.5-5.1) Chloride Level 109 mmol/L (98-107) Carbon Dioxide Level 23 mmol/L (21-32) Anion Gap 10 (6-14) Blood Urea Nitrogen 5 mg/dL (8-26) Creatinine 0.7 mg/dL (0.7-1.3) Estimated GFR (Cockcroft-Gault) 110.9 BUN/Creatinine Ratio 7 (6-20) Glucose Level 89 mg/dL (70-99) Calcium Level 8.2 mg/dL (8.5-10.1) Ferritin 7 ng/mL (26-388) Total Bilirubin 0.8 mg/dL (0.2-1.0) Aspartate Amino Transf (AST/SGOT) 9 U/L (15-37) Alanine Aminotransferase (ALT/SGPT) 10 U/L (16-63) Alkaline Phosphatase 70 U/L (46-116) Total Protein 6.4 g/dL (6.4-8.2) Albumin 3.0 g/dL (3.4-5.0) Albumin/Globulin Ratio 0.9 (1.0-1.7) Test 04/09/19 07:43 04/09/19 09:00 04/09/19 10:57 04/09/19 19:03 Glucose (Fingerstick) 104 mg/dL (70-99) 113 mg/dL (70-99) 179 mg/dL (70-99) Vitamin B12 Level 287 pg/mL (247-911) Test 04/09/19 21:10 04/10/19 04:24 04/10/19 07:41 Glucose (Fingerstick) 185 mg/dL (70-99) 123 mg/dL (70-99) White Blood Count 15.0 x10^3/uL (4.0-11.0) Red Blood Count 4.06 x10^6/uL (4.30-5.70) Hemoglobin 7.6 g/dL (13.0-17.5) Hematocrit 26.1 % (39.0-53.0) Mean Corpuscular Volume 64 fL (79-100) Mean Corpuscular Hemoglobin 19 pg (25-35) Mean Corpuscular Hemoglobin Concent 29 g/dL (31-37) Red Cell Distribution Width 37.2 % (11.5-14.5) Platelet Count 181 x10^3/uL (140-400) Neutrophils (%) (Auto) 77 % (31-73) Lymphocytes (%) (Auto) 16 % (24-48) Monocytes (%) (Auto) 7 % (0-9) Eosinophils (%) (Auto) 0 % (0-3) Basophils (%) (Auto) 0 % (0-3) Neutrophils # (Auto) 11.5 x10^3/uL (1.8-7.7) Lymphocytes # (Auto) 2.4 x10^3/uL (1.0-4.8) Monocytes # (Auto) 1.0 x10^3/uL (0.0-1.1) Eosinophils # (Auto) 0.0 x10^3/uL (0.0-0.7) Basophils # (Auto) 0.0 x10^3/uL (0.0-0.2) Segmented Neutrophils % 84 % (35-66) Lymphocytes % 15 % (24-48) Monocytes % 1 % (0-10) Platelet Estimate Adequate (ADEQUATE) Large Platelets Few Hypochromasia Marked Poikilocytosis Slight Anisocytosis Marked Microcytosis Mod Ovalocytes Few Schistocytes Few Sodium Level 141 mmol/L (136-145) Potassium Level 3.7 mmol/L (3.5-5.1) Chloride Level 106 mmol/L (98-107) Carbon Dioxide Level 26 mmol/L (21-32) Anion Gap 9 (6-14) Blood Urea Nitrogen 10 mg/dL (8-26) Creatinine 0.8 mg/dL (0.7-1.3) Estimated GFR (Cockcroft-Gault) 95.0 BUN/Creatinine Ratio 13 (6-20) Glucose Level 102 mg/dL (70-99) Calcium Level 8.4 mg/dL (8.5-10.1) Total Bilirubin 0.8 mg/dL (0.2-1.0) Aspartate Amino Transf (AST/SGOT) 12 U/L (15-37) Alanine Aminotransferase (ALT/SGPT) 6 U/L (16-63) Alkaline Phosphatase 72 U/L (46-116) Total Protein 6.4 g/dL (6.4-8.2) Albumin 3.1 g/dL (3.4-5.0) Albumin/Globulin Ratio 0.9 (1.0-1.7) Laboratory Tests Test 04/09/19 09:00 04/09/19 10:57 04/09/19 19:03 04/09/19 21:10 Vitamin B12 Level 287 pg/mL (247-911) Glucose (Fingerstick) 113 mg/dL (70-99) 179 mg/dL (70-99) 185 mg/dL (70-99) Test 04/10/19 04:24 04/10/19 07:41 White Blood Count 15.0 x10^3/uL (4.0-11.0) Red Blood Count 4.06 x10^6/uL (4.30-5.70) Hemoglobin 7.6 g/dL (13.0-17.5) Hematocrit 26.1 % (39.0-53.0) Mean Corpuscular Volume 64 fL (79-100) Mean Corpuscular Hemoglobin 19 pg (25-35) Mean Corpuscular Hemoglobin Concent 29 g/dL (31-37) Red Cell Distribution Width 37.2 % (11.5-14.5) Platelet Count 181 x10^3/uL (140-400) Neutrophils (%) (Auto) 77 % (31-73) Lymphocytes (%) (Auto) 16 % (24-48) Monocytes (%) (Auto) 7 % (0-9) Eosinophils (%) (Auto) 0 % (0-3) Basophils (%) (Auto) 0 % (0-3) Neutrophils # (Auto) 11.5 x10^3/uL (1.8-7.7) Lymphocytes # (Auto) 2.4 x10^3/uL (1.0-4.8) Monocytes # (Auto) 1.0 x10^3/uL (0.0-1.1) Eosinophils # (Auto) 0.0 x10^3/uL (0.0-0.7) Basophils # (Auto) 0.0 x10^3/uL (0.0-0.2) Segmented Neutrophils % 84 % (35-66) Lymphocytes % 15 % (24-48) Monocytes % 1 % (0-10) Platelet Estimate Adequate (ADEQUATE) Large Platelets Few Hypochromasia Marked Poikilocytosis Slight Anisocytosis Marked Microcytosis Mod Ovalocytes Few Schistocytes Few Sodium Level 141 mmol/L (136-145) Potassium Level 3.7 mmol/L (3.5-5.1) Chloride Level 106 mmol/L (98-107) Carbon Dioxide Level 26 mmol/L (21-32) Anion Gap 9 (6-14) Blood Urea Nitrogen 10 mg/dL (8-26) Creatinine 0.8 mg/dL (0.7-1.3) Estimated GFR (Cockcroft-Gault) 95.0 BUN/Creatinine Ratio 13 (6-20) Glucose Level 102 mg/dL (70-99) Calcium Level 8.4 mg/dL (8.5-10.1) Total Bilirubin 0.8 mg/dL (0.2-1.0) Aspartate Amino Transf (AST/SGOT) 12 U/L (15-37) Alanine Aminotransferase (ALT/SGPT) 6 U/L (16-63) Alkaline Phosphatase 72 U/L (46-116) Total Protein 6.4 g/dL (6.4-8.2) Albumin 3.1 g/dL (3.4-5.0) Albumin/Globulin Ratio 0.9 (1.0-1.7) Glucose (Fingerstick) 123 mg/dL (70-99) Problem List Problems Medical Problems: (1) Abnormal laboratory test Status: Acute (2) Anemia Status: Acute (3) Autism Status: Acute Assessment/Plan s/p lap right colon tx to [facility] for urology eval due to retention, inability to place ferguson bowel rest will FU at [facility] tomorrow MAURICE ROSS APRN Apr 10, 2019 08:40
--- NOTE | 2019-04-10 08:44 | NUR ---
BRANDY consulted for a transfer to [facility]. BRANDY phoned [facility]: [phone], fax: [phone] and spoke with Bed control nurseKristen. BRANDY faxed facesheet and insurance cards to [facility]. BRANDY also provided Physician number for Physician report. Acceptance pending.
[2019-04-10] MEDS ORDERED: ENOXAPARIN 40 MG/0.4 ML SYRINGE. SQ SCH (09:00)
--- NOTE | 2019-04-10 09:46 | PDOC ---
Subjective: Subjective: Feels like he has to poop, has pain. D/w sister. Objective: Objective: Reviewed chart/op note: Note: Myself and the operative team was unable to place a ferguson catheter while under anesthesia. The foreskin of the patient is unable to retract and was nearly sealed. Attempts to dilate the opening and place a catheter were unsuccessful, and most likely a foreskin procedure will be required if catheter ization is necessary. There is currently no Urology service at [facility]. Vital Signs: Vital Signs Date Time Temp Pulse Resp B/P (MAP) Pulse Ox O2 Delivery O2 Flow Rate FiO2 04/10/19 08:23 97 Room Air 04/10/19 07:00 98.2 69 16 136/58 (84) 98.2 04/09/19 18:55 8 Labs: Laboratory Tests Test 04/09/19 10:57 04/09/19 19:03 04/09/19 21:10 04/10/19 04:24 Glucose (Fingerstick) 113 mg/dL 179 mg/dL 185 mg/dL White Blood Count 15.0 x10^3/uL Red Blood Count 4.06 x10^6/uL Hemoglobin 7.6 g/dL Hematocrit 26.1 % Mean Corpuscular Volume 64 fL Mean Corpuscular Hemoglobin 19 pg Mean Corpuscular Hemoglobin Concent 29 g/dL Red Cell Distribution Width 37.2 % Platelet Count 181 x10^3/uL Neutrophils (%) (Auto) 77 % Lymphocytes (%) (Auto) 16 % Monocytes (%) (Auto) 7 % Eosinophils (%) (Auto) 0 % Basophils (%) (Auto) 0 % Neutrophils # (Auto) 11.5 x10^3/uL Lymphocytes # (Auto) 2.4 x10^3/uL Monocytes # (Auto) 1.0 x10^3/uL Eosinophils # (Auto) 0.0 x10^3/uL Basophils # (Auto) 0.0 x10^3/uL Segmented Neutrophils % 84 % Lymphocytes % 15 % Monocytes % 1 % Platelet Estimate Adequate Large Platelets Few Hypochromasia Marked Poikilocytosis Slight Anisocytosis Marked Microcytosis Mod Ovalocytes Few Schistocytes Few Sodium Level 141 mmol/L Potassium Level 3.7 mmol/L Chloride Level 106 mmol/L Carbon Dioxide Level 26 mmol/L Anion Gap 9 Blood Urea Nitrogen 10 mg/dL Creatinine 0.8 mg/dL Estimated GFR (Cockcroft-Gault) 95.0 BUN/Creatinine Ratio 13 Glucose Level 102 mg/dL Calcium Level 8.4 mg/dL Total Bilirubin 0.8 mg/dL Aspartate Amino Transf (AST/SGOT) 12 U/L Alanine Aminotransferase (ALT/SGPT) 6 U/L Alkaline Phosphatase 72 U/L Total Protein 6.4 g/dL Albumin 3.1 g/dL Albumin/Globulin Ratio 0.9 Test 04/10/19 07:41 Glucose (Fingerstick) 123 mg/dL Imaging: KUB 04/09 IMPRESSION: No unexpected radiopaque foreign body. PE: GEN: NAD - on commode NEURO/PSYCH: A & O 3 A/P: Obstructive colon tumor s/p right colon resection QUINN -- Awaiting transfer plans for urology altaf. SANTINO MENA Apr 10, 2019 09:46
--- NOTE | 2019-04-10 09:53 | NUR ---
BRANDY following pt. Pt has been accepted at [facility] and is assigned a bed in room 339. BRANDY faxed clinicals and consent form signed by pt's niece, placed on chart and a copy also sent to [facility]. RN report: Kailee: [phone] BRANDY arranged transport via K and pt is being transferred at this time. Pt and niece agreeable. Discussed with RN and Physician.
--- NOTE | 2019-04-10 10:16 | NUR ---
Pt transferred to [facility] for Urology consult. Bladder scan at 0600 showed 712mL in bladder and Pt isn't able to void. Pt transferred by EMS.
--- NOTE | 2019-04-10 11:59 | PDOC ---
[facility] PROGRESS NOTE Chief Complaint Chief Complaint MICROCYTIC ANEMIA, MARKED Acute precipitous drop hgb FOBT positive autism prev CT HEAD large cystic structure associated with the posterior aspect of the right lateral ventricle extending into the temporal horn. // chronic appearance. There is some associated mass effect phoebe cystic structure, as opposed to an encephalomalacic area, is felt most likely. (A thin rim of cortex is suggested surrounding this cystic mass). Depression NOS on meds DM on OHA - Normal BMI Urinary retention History of Present Illness History of Present Illness 04/10/2019 Pt was seen and examined. 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 Niece reports he has always struggled to urinate, however symptoms worsened post surgery. Nurse reports bladder scan done at bedside revealed approximately 700 mls of urine in the bladder. 04/09/2019 Pt was seen and examined. No acute complaints was reported. Niece reports he will be having a picc line inserted momentarily followed by a contrast CT with plans to resect the mass found on colonoscopy this afternoon. 04/08/2019 Pt was seen and examined. On exam pt was resting comfortably with no acute complaints. His niece was in the room on exam this morning and reports the patient will be going for a colonoscopy with endoscopy this afternoon. 04/07/2019 Pt was seen and examined. On exam he was resting comfortably and pleasant to converse with. Niece was present on interview and reports prior to admission pt was largely asymptomatic. Reports he had gone for a routine office visit with his outpatient provider and his labs came back with a low hgb. On hospital admission she reports he was found to be FOBT + and is scheduled for EGD with colonoscopy tomorrow morning. 04/06/2019 VTE Prophylaxis Ordered VTE Prophylaxis Devices: Contraindicated VTE Pharmacological Prophylaxi: Contraindicated Assessment/Plan Assessment/Plan MICROCYTIC ANEMIA, MARKED Acute precipitous drop hgb - hgb 3 NOW 7.2 FOBT positive autism prev CT HEAD large cystic structure associated with the posterior aspect of the right lateral ventricle extending into the temporal horn. // chronic appearance. There is some associated mass effect phoebe cystic structure, as opposed to an encephalomalacic area, is felt most likely. (A thin rim of cortex is suggested surrounding this cystic mass). Depression NOS on meds DM on OHA - NOrmal BMI FULL CODE PLAN; Transfuse, ICU bed HH in am GI FOLLOWING Lqiud diet PPI IV per GI colonoscopy and EGD ///Monday; 37 MIN CC TIME Vitals/I&O Vitals/I&O: Vital Signs Date Time Temp Pulse Resp B/P (MAP) Pulse Ox O2 Delivery O2 Flow Rate FiO2 04/10/19 08:23 97 Room Air 04/10/19 07:00 98.2 69 16 136/58 (84) 98.2 04/09/19 18:55 8 I & O 04/09/19 04/09/19 04/10/19 15:00 23:00 07:00 Intake Total 1250 ml 0 ml Output Total 50 ml Balance 1200 ml 0 ml Physical Exam General: Alert, Cooperative, No acute distress Heart: Regular rate, Normal S1, Normal S2 Lungs: Clear Abdomen: Soft, Other (ventral incision from surgery is clean, dry and dressed appropriately. Tenderness to palpation above the suprapubic region.) Extremities: No clubbing, No cyanosis Skin: No breakdown, No significant lesion, Other ( exam: Pt with what appears to be phimosis on gu exam) Labs Labs: Laboratory Tests Test 04/09/19 19:03 04/09/19 21:10 04/10/19 04:24 04/10/19 07:41 Glucose (Fingerstick) 179 mg/dL (70-99) 185 mg/dL (70-99) 123 mg/dL (70-99) White Blood Count 15.0 x10^3/uL (4.0-11.0) Red Blood Count 4.06 x10^6/uL (4.30-5.70) Hemoglobin 7.6 g/dL (13.0-17.5) Hematocrit 26.1 % (39.0-53.0) Mean Corpuscular Volume 64 fL (79-100) Mean Corpuscular Hemoglobin 19 pg (25-35) Mean Corpuscular Hemoglobin Concent 29 g/dL (31-37) Red Cell Distribution Width 37.2 % (11.5-14.5) Platelet Count 181 x10^3/uL (140-400) Neutrophils (%) (Auto) 77 % (31-73) Lymphocytes (%) (Auto) 16 % (24-48) Monocytes (%) (Auto) 7 % (0-9) Eosinophils (%) (Auto) 0 % (0-3) Basophils (%) (Auto) 0 % (0-3) Neutrophils # (Auto) 11.5 x10^3/uL (1.8-7.7) Lymphocytes # (Auto) 2.4 x10^3/uL (1.0-4.8) Monocytes # (Auto) 1.0 x10^3/uL (0.0-1.1) Eosinophils # (Auto) 0.0 x10^3/uL (0.0-0.7) Basophils # (Auto) 0.0 x10^3/uL (0.0-0.2) Segmented Neutrophils % 84 % (35-66) Lymphocytes % 15 % (24-48) Monocytes % 1 % (0-10) Platelet Estimate Adequate (ADEQUATE) Large Platelets Few Hypochromasia Marked Poikilocytosis Slight Anisocytosis Marked Microcytosis Mod Ovalocytes Few Schistocytes Few Sodium Level 141 mmol/L (136-145) Potassium Level 3.7 mmol/L (3.5-5.1) Chloride Level 106 mmol/L (98-107) Carbon Dioxide Level 26 mmol/L (21-32) Anion Gap 9 (6-14) Blood Urea Nitrogen 10 mg/dL (8-26) Creatinine 0.8 mg/dL (0.7-1.3) Estimated GFR (Cockcroft-Gault) 95.0 BUN/Creatinine Ratio 13 (6-20) Glucose Level 102 mg/dL (70-99) Calcium Level 8.4 mg/dL (8.5-10.1) Total Bilirubin 0.8 mg/dL (0.2-1.0) Aspartate Amino Transf (AST/SGOT) 12 U/L (15-37) Alanine Aminotransferase (ALT/SGPT) 6 U/L (16-63) Alkaline Phosphatase 72 U/L (46-116) Total Protein 6.4 g/dL (6.4-8.2) Albumin 3.1 g/dL (3.4-5.0) Albumin/Globulin Ratio 0.9 (1.0-1.7) Review of Systems Review of Systems: Denies CP Denies SOB Denies N/V/D Admits difficulty urinating Admits suprapubic tenderness/distension. Assessment and Plan Assessmemt and Plan Problems Medical Problems: (1) Abnormal laboratory test Status: Acute (2) Anemia Status: Acute (3) Autism Status: Acute MICROCYTIC ANEMIA, MARKED Acute precipitous drop hgb FOBT positive autism prev CT HEAD large cystic structure associated with the posterior aspect of the right lateral ventricle extending into the temporal horn. // chronic appearance. There is some associated mass effect phoebe cystic structure, as opposed to an encephalomalacic area, is felt most likely. (A thin rim of cortex is suggested surrounding this cystic mass). Depression NOS on meds DM on OHA - Normal BMI Urinary retention Plan: 1) Discussed with Hospitalist at [facility] to initiate transfer of care for stat urology consult. 2) Continue current GI and surgical recommendations 3) DVT prophylaxis 4) PT/OT 5) Full code Comment Review of Relevant I have reviewed the following items mari (where applicable) has been applied. Medications: Current Medications Medications (Trade) Dose Ordered Sig/Eriberto Route PRN Reason Start Time Stop Time Status Last Admin Dose Admin Lidocaine HCl (Buffered Lidocaine 1%) 3 ml 1X ONCE INJ 04/09/19 12:30 04/09/19 12:31 DC 04/09/19 12:52 Fentanyl Citrate (Fentanyl 2ml Vial) 50 mcg PRN Q5MIN PRN IV MODERATE TO SEVERE PAIN 04/09/19 13:15 04/10/19 13:14 04/09/19 19:12 Morphine Sulfate (Morphine Sulfate) 1 mg PRN Q10MIN PRN IV SEVERE PAIN 7-10 04/09/19 13:15 04/10/19 13:14 04/10/19 08:23 Ringer's Solution 1,000 ml @ 30 mls/hr Q24H IV 04/09/19 13:07 04/10/19 01:06 DC 04/09/19 13:32 Hydromorphone HCl (Dilaudid) 0.5 mg PRN Q3HRS PRN IVP MODERATE PAIN, SEVERE PAIN 04/09/19 18:45 04/10/19 04:20 MEAGHAN DURHAM III DO Apr 10, 2019 11:59
--- NOTE | 2019-04-10 17:06 | PATHOLOGY ---
[facility] Accession Number: [id number] . 01 Material submitted: . PART A: duodenum - BIOPSY DUODENUM PART B: stomach - ANTRAL BIOPSY PART C: stomach - BIOPSY GASTRIC POLYP PART D: colon - BIOPSY MASS ASCENDING COLON. Modifiers: ascending PART E: colon - BIOPSY TRANSVERSE COLON POLYP. Modifiers: transverse . 01 Clinical history: . anemia . 02 Diagnosis: A. Duodenal biopsies: - No significant pathologic abnormalities. . B. Gastric biopsies, antrum: - Chronic gastritis, mild. . C. Gastric biopsies, gastric polyp: - Polypoid segment of gastric mucosa showing marked acute and chronic inflammation with surface erosion and reactive atypia of the gastric epithelium. . D. Colon biopsies, ascending colon mass: - COLORECTAL ADENOCARCINOMA, MODERATELY DIFFERENTIATED. . E. Colon biopsy, transverse colon polyp: - Hyperplastic polyp, with acute and chronic inflammation. (JPM:[facility] 04/10/2019) [facility] 04/10/2019 1233 Local . 02 Comment: Sections of the duodenal biopsy reveal segments of duodenal and small intestine mucosa. Where best oriented, the mucosal villi show no sprue-like changes or significant inflammatory changes. . Sections of the gastric antral biopsy show congestion and mild chronic inflammation. A properly controlled immunoperoxidase stain for Helicobacter is negative for Helicobacter organisms. . Sections of the gastric polyp biopsy reveal a polypoid segment of gastric mucosa showing marked acute and chronic inflammation with surface erosion and reactive gastric epithelial atypia. There are no adenomatous changes or evidence of malignancy. . Sections of the ascending colon mass biopsy reveal a malignant neoplasm comprised of small and larger irregular glands which infiltrate a reactive desmoplastic stroma. There is focal evidence of ulceration. The morphologic findings are supportive of the diagnosis of a moderately differentiated colorectal adenocarcinoma. . . Sections of the transverse colon biopsy reveal an inflamed hyperplastic polyp showing acute and chronic inflammation. There are no adenomatous changes or evidence of malignancy. . The results are reported to Dr. Gonsalez on 04/10/2019 at 2:30 PM. The case is also examined by Dr. Russo, who concurs with the diagnosis. (JPM:[facility] 04/10/2019) . Special stain performed: Immunoperoxidase for Helicobacter on B1 . 02 Electronically signed: . Ochoa Martínez MD, Pathologist NPI- [id number] . 01 Gross description: . A. The specimen is received in formalin, labeled "Day, Bennett, BX duodenum" and consists of 3 fragments of pink-foley tissue measuring between 0.3 x 0.2 cm and 0.6 x 0.3 cm which are entirely submitted in A1. . B. The specimen is received in formalin, labeled "Day, Bennett, antral BX" and consists of 3 fragments of pink-foley tissue measuring between 0.4 x 0.3 cm and 0.6 x 0.2 cm which are entirely submitted in B1. . C. The specimen is received in formalin, labeled "Day, Bennett, BX gastric polyp" and consists of 5 fragments of pink-foley tissue measuring 0.9 x 0.6 x 0.3 cm in aggregate which are entirely submitted in C1. . D. The specimen is received in formalin, labeled "Day, Bennett, BX mass ascending colon" and consists of multiple friable fragments of foley tissue measuring 1.2 x 0.8 x 0.2 cm in aggregate which are entirely submitted in D1. . E. The specimen is received in formalin, labeled "Day, Bennett, BX transverse colon polyp" and consists of a fragment of foley tissue measuring 0.4 x 0.3 x 0.2 cm which is entirely submitted in E1. (SDY; 04/09/2019) SYU/SYU 04/09/2019 1721 Local . 02 Pathologist provided ICD-10: K29.50, K29.00, K25.9, C18.9, K63.5, K52.9 . 02 CPT . 425495, 360520, 314369, 408605, 374554, [id number] Specimen Comment: A courtesy copy of this report has been sent to [phone] Specimen Comment: [phone], Specimen Comment: Report sent to ,DR MAYERS / DR SHAW Performed at: 01 [facility] [address] [facility] [address], [place] [id number] MD Haroon Hatch MD Phone: [phone] Performed at: 02 [facility] [address] [place], [place] [id number] MD Ochoa Martínez MD Phone: [phone]
--- NOTE | 2019-04-11 09:38 | DS ---
DATE OF DISCHARGE: 04/10/2019 ADMISSION DIAGNOSIS: Gastrointestinal bleed. DISCHARGE DIAGNOSES: 1. Postop day 1 colon resection for a new diagnosis of colon cancer. 2. Phimosis. HOSPITAL COURSE: The patient is a pleasant middle-aged male who is cognitively challenged. Basically, he presented with weakness. He was noted to be quite anemic with a hemoglobin of 3.4. He was admitted and we transfused and gotten him above 7 and then we consulted GI and they found a large mass in his colon on endoscopy. We then consulted General Surgery and he was taken for successful partial colectomy. After surgery, he developed a pretty severe phimosis, he had almost a liter of postvoid residual. He was barely able to urinate at all, only about 75 mL a day. We transferred him to [facility] to see Urology. DISPOSITION: Transferred to [facility]. ACTIVITY: As tolerated. DIET: N.p.o. for now. MEDICATIONS: Please see the MRAD. TOTAL TIME: 32 minutes. MEAGHAN DURHAM DO DR: DEENA/yas JOB#: [id number] / [id number]
--- NOTE | 2019-04-15 23:06 | PATHOLOGY ---
[facility] Accession Number: [id number] . 01 Material submitted: . colon - RIGHT COLON . Modifiers: right . 01 Clinical history: . None provided . 02 Frozen section diagnosis: . INTRAOPERATIVE GROSS IMPRESSION (Ochoa Martínez MD) . 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 . The results are displayed to Dr. Young in the operating room. The specimen is fixed in formalin prior to additional sectioning. . (JPM:composition board press operator; 04/09/2019) . GROSS DESCRIPTION Specimen is received fresh and is designated "right colon". This consists of a short segment of distal ileum, cecum with attached appendix, and ascending colon with attached mesocolon. The segment is stapled closed at both ends. The segment of distal ileum measures approximately 4.0 cm in length. The cecum and ascending colon measure approximately 18.0 cm in length. Attached to the base of the cecum is a pink-foley elongate vermiform appendix measuring up to 8 cm in length and 0.6 cm in width. There is focal black tattooing of the serosal surface and base of mesocolon of the mid ascending colon. The serosal surface at the junction of the cecum and proximal ascending colon is puckered and corresponds to a palpable mass within the colon. The remaining serosal surface is pinkish-foley and focally erythematous. The attached mesocolon measures up to 7.5 cm in depth. The segment is open along the antimesocolic aspect. The ileal mucosa is yellow-green and transversely folded. There is a circumferential, centrally ulcerated pink-foley tumor mass of the proximal ascending colon in the region of the junction of the cecum and ascending colon. The tumor also involves a portion of the ileocecal valve. The tumor measures up to 6.5 cm in circumference and is approximately 3.5 cm in length. There is marked stenosis of the lumen of the ileocecal valve in addition to narrowing of the lumen between the cecum and ascending colon. The tumor is obviously fixed to the muscular wall. The mucosa distal to the tumor is pale pink to yellowish foley and somewhat edematous. There are no additional polyps or tumor masses. There are no obvious palpably enlarged lymph nodes within the attached mesocolon. . (JPM:composition board press operator/jude; 04/09/2019) . Intraoperative consultation performed at [facility], [address] [facility] [place] [place] [address]. BORIS/HUGO . 02 Diagnosis: "Right colon", right hemicolectomy: - INVASIVE ADENOCARCINOMA, MODERATELY DIFFERENTIATED, MEASURING 6.5 CM GROSSLY, INVOLVING THE CECUM, ASCENDING COLON AND ILEOCECAL VALVE, INVADING THROUGH THE MUSCULARIS PROPRIA AND INTO THE SUBSEROSAL ADIPOSE TISSUES (pT3); MUCOSAL MARGINS FREE OF DYSPLASIA AND CARCINOMA. - Lymph nodes (20) with no evidence of metastatic carcinoma. (20 nodes). - Appendix with fibrous obliteration. (CLW:kinza; 04/15/2019) . Surgical Pathology Cancer Case Summary . Procedure ___ Right hemicolectomy . Tumor Site ___ Cecum ___ Ileocecal valve ___ Right (ascending) colon . Tumor Size Greatest dimension (centimeters): 6.5 cm . Macroscopic Tumor Perforation ___ Not identified . Histologic Type ___ Adenocarcinoma . Histologic Grade ___ G2: Moderately differentiated . Tumor Extension ___ Tumor invades through the muscularis propria and into pericolorectal tissue . Margins ___ All margins are uninvolved by invasive carcinoma, high-grade dysplasia, intramucosal adenocarcinoma, and adenoma . Margins examined: Proximal and distal . Treatment Effect ___ No known presurgical therapy . Lymphovascular Invasion ___ Not identified . Perineural Invasion ___ Not identified . Tumor Deposits ___ Not identified . Regional Lymph Nodes Number of Lymph Nodes Involved: 0 . Number of Lymph Nodes Examined: 20 . Pathologic Stage Classification (pTNM, AJCC 8th Edition) . Primary Tumor (pT) ___ pT3:Tumor invades through the muscularis propria into pericolorectal tissues . Regional Lymph Nodes (pN) ___ pN0:No regional lymph node metastasis R 04/15/2019 2256 Local . 02 Comment: The patient has a history of "colorectal adenocarcinoma, moderately differentiated" from a previous ascending colon mass mucosal biopsy ([id number]). Clinical correlation is recommended. (CLW:kinza; 04/15/2019) . 02 Electronically signed: . Loulou Russo MD, Pathologist NPI- [id number] . 01 Gross description: . PLEASE SEE FROZEN SECTION FOR INTRAOPERATIVE CONSULTATION GROSS DESCRIPTION. . The puckered serosa is inked black. Sectioning the mass reveals focal obliteration of the muscular wall with extension into the mesocolic tissue of a gross depth of 0.8 cm. The mass also focally abuts the black inked serosa. Sectioning the appendix reveals a pinpoint lumen with possible obliteration fibrous of the tip. The pericolic tissue reveals multiple lymph node candidates measuring up to 1.5 cm showing variegated solis-foley to white cut surfaces. [employer] sections are submitted as follows: . A1: Proximal margin A2: Distal margin A3-A4: Mass obliteration of muscular wall A5: Mass abutting black inked A6-A7: Mass to proximal (ileocecal valve) A8: Mass to proximal mucosa A9: Appendix A10-A11: Largest lymph node, serially sectioned A12: One serially sectioned lymph node A13: One bisected and one intact (inked black) lymph node candidates A14: One bisected and one intact (inked black lymph node A15: 1 trisected lymph node A16: 2 bisected lymph nodes, one inked black A17: 4 intact lymph nodes A18: 2 bisected lymph nodes, one inked black A19: One bisected and one intact (inked black) lymph node (SDY; 04/11/2019) SYU/MBR 04/11/2019 1532 Local . 02 Pathologist provided ICD-10: C18.0, C18.2 . 02 CPT . 181766, 849422 Specimen Comment: A courtesy copy of this report has been sent to [phone] Specimen Comment: Report sent to Performed at: [address], [place], [place] [id number] MD Haroon Hatch MD Phone: [phone] Performed at: [address] [id number] MD Ochoa Martínez MD Phone: [phone]
== END 2019-04-10 09:54 | disposition short-term general hospital (02) | DRG 330 ==
LOC: ER 14:07 → 1 WEST ICU 15:36 → 6 SOUTH 04-06 16:13
PROVIDERS: ADMIT Internal Medicine; ATTEND Internal Medicine
PROC: 30233N1 Transfusion of Nonautologous Red Blood Cells into Peripheral Vein, Percutaneous Approach (ICD-10-PCS; principal; 2019-04-05)
PROC: 0DB98ZX Excision of Duodenum, Via Natural or Artificial Opening Endoscopic, Diagnostic (ICD-10-PCS; 2019-04-08)
PROC: 0DB68ZX Excision of Stomach, Via Natural or Artificial Opening Endoscopic, Diagnostic (ICD-10-PCS; 2019-04-08)
PROC: 0DBK8ZX Excision of Ascending Colon, Via Natural or Artificial Opening Endoscopic, Diagnostic (ICD-10-PCS; 2019-04-08)
PROC: 0DBL8ZX Excision of Transverse Colon, Via Natural or Artificial Opening Endoscopic, Diagnostic (ICD-10-PCS; 2019-04-08)
PROC: 0DBL8ZX Excision of Transverse Colon, Via Natural or Artificial Opening Endoscopic, Diagnostic (ICD-10-PCS; 2019-04-08 14:30)
PROC: 02HV33Z Insertion of Infusion Device into Superior Vena Cava, Percutaneous Approach (ICD-10-PCS; 2019-04-09)
PROC: B5181ZA Fluoroscopy of Superior Vena Cava using Low Osmolar Contrast, Guidance (ICD-10-PCS; 2019-04-09)
PROC: B548ZZA Ultrasonography of Superior Vena Cava, Guidance (ICD-10-PCS; 2019-04-09)
PROC: 0DTF4ZZ Resection of Right Large Intestine, Percutaneous Endoscopic Approach (ICD-10-PCS; 2019-04-09)
DX: C18.9 Malignant neoplasm of colon, unspecified (principal); F84.0 Autistic disorder; K92.2 Gastrointestinal hemorrhage, unspecified; K31.7 Polyp of stomach and duodenum; D50.9 Iron deficiency anemia, unspecified; E11.9 Type 2 diabetes mellitus without complications; E53.8 Deficiency of other specified B group vitamins; F32.9 Major depressive disorder, single episode, unspecified; F79 Unspecified intellectual disabilities; H91.90 Unspecified hearing loss, unspecified ear; N47.1 Phimosis
CPT/HCPCS: 36415; 36430; 36573; 43239; 45380; 45381; 71250; 71270; 74018; 74176; 74178; 77001; 80053; 82274; 82378; 82607; 82728; 82962; 83540; 83550; 85007; 85014; 85018; 85025; 85045; 86850; 86900; 86901; 86920; 88305; 88309; 88342; 93005; A7015; C1751; C1892; C9113; J0171; J0696; J1100; J1170; J1815; J2001; J2250; J2270; J2704; J2710; J3010; J3490; J7030; J7120; P9016; Q9966; Q9967; 99291-25; G0378